=== PATIENT | female | born 1990 | race Caucasian/White ===

== ENCOUNTER 2016-04-19 18:52 | Emergency (ER) | payer OTHER ==
[~2016-04-19] VITALS: Ht 165.1 cm; Wt 100.7 kg
[~2016-04-19 18:52] MED LIST: AMT25T PO; AZIT250T81 PO; BENZ-22 PO; BUTA1CAP42 PO; BUTA1TAB6 PO; CLON0.252 PO; CODE30TA PO; CYCL10TA45 PO; DICL75TA2 PO; DICY10CA12 PO; ESCI20TA39; GBPN100C PO; HYDR-3702 PO; METF-759 PO; METH4TAB27 PO; NAPR550T PO; NF-TORA10 PO; NITR100C3 PO; NORE-25 PO; NORE1TAB61 PO; ONDA4TAB8 PO; ONDAN4ODT PO; PRCD5U PO; PROP80CA39 PO; SERT50TA PO; SULF1TAB35 PO; TOPI-53 PO; TRAZ100T92 PO; TRM50T PO
[2016-04-19] MEDS ORDERED: TRAZ-28 PO (19:20)
[2016-04-19] MEDS ORDERED: MIRT15TA PO (19:20)
[2016-04-19] MEDS ORDERED: ORPH100T3 PO (19:20)
[2016-04-19] MEDS ORDERED: PRD20T PO (19:20)
[2016-04-19] MEDS ORDERED: HYDR-33 PO (19:20)
[2016-04-19] MEDS ORDERED: SODIUM CHLORIDE FLUSH 10 ML SYR IV PRN (19:40)
[2016-04-19] MEDS ORDERED: ONDANSETRON 2 MG/ML (Z0FRAN) 2 ML VIAL IV ONE (19:40)
[2016-04-19] MEDS ORDERED: HYDROmorphone 1 MG/ML (DILAUDID) SYRINGE IV ONE (19:40)
[2016-04-19] MEDS ORDERED: SODIUM CHLORIDE FLUSH 3 ML SYR IV PRN (19:40)
[2016-04-19 20:16] LABS: ANION GAP 14.1 MEQ/L (3-15)
[2016-04-19] MEDS ORDERED: morphine INJ 2 MG/ML 1 ML SYRINGE IV PRN (21:05)
[2016-04-19] MEDS ORDERED: ORPHENADRINE 60 MG/2 ML (NORFLEX) AMP IV ONE ×2 (21:05→22:05)
[2016-04-19] MEDS ORDERED: morphine INJ 4 MG/ML 1 ML SYRINGE IV ONE (22:05)
[2016-04-19] MEDS ORDERED: ED- oxyCODONE/ACETAMINOPHEN 5MG-325MG (PERCOCET) 8 TABLETS/BTL PO ONE (22:05)
[2016-04-19] MEDS ORDERED: ED- CYCLOBENZAPRINE 10 MG (FLEXERIL) 3 TABLETS/BTL PO ONE (22:05)
[2016-04-19] MEDS ORDERED: OXYC1TAB87 PO (22:10)
[2016-04-19] MEDS ORDERED: CYCL10TA45 PO (22:10)
[2016-04-19 22:37] VITALS: BP 118/84
[2016-05-25] MEDS ORDERED: DIPH1TAB45 PO (17:24)
[2016-07-10] MEDS ORDERED: AZIT250T5 PO (19:01)
[2016-07-10] MEDS ORDERED: NEBU1KIT3 MC (19:01)
[2016-07-10] MEDS ORDERED: ALBU2.5V4 INH (19:01)
[2016-07-10] MEDS ORDERED: ALBU8CC IH (19:13)
== END 2016-04-19 22:38 | disposition home or self-care (01) ==
LOC: ED 18:53
DX: M54.5 Low back pain (principal)
CPT/HCPCS: 36415; 80048; 96361; 96374; 96375; 96376; 99283; J1170; J2270; J2360; J2405; J7030

== ENCOUNTER 2016-04-21 23:45 | Emergency (ER) | payer OTHER ==
[~2016-04-21] VITALS: Ht 165.1 cm; Wt 100.7 kg
[~2016-04-21 23:45] MED LIST changes: +HYDR-33 PO; +MIRT15TA PO; +ORPH100T3 PO; +OXYC1TAB87 PO; +PRD20T PO; +TRAZ-28 PO
--- NOTE | 2016-04-22 00:12 | NUR ---
Faxed authization for release of medical records to [facility] after speaking to Paz, change house attendant. She states that she will fax back the reports.
[2016-04-22] MEDS ORDERED: PROMETHAZINE 25 MG/ML (PHENERGAN) 1 ML VIAL IM ONE (00:20)
[2016-04-22] MEDS ORDERED: morphine INJ 10 MG/ML 1 ML VIAL IM SCH (00:20)
[2016-04-22] MEDS ORDERED: ORPHENADRINE 60 MG/2 ML (NORFLEX) AMP IM ONE (00:20)
[2016-04-22] MEDS ORDERED: OXYC1TAB87 PO (00:34)
[2016-04-22 00:52] VITALS: BP 113/75
[2016-05-25] MEDS ORDERED: DIPH1TAB45 PO (17:24)
[2016-07-10] MEDS ORDERED: AZIT250T5 PO (19:01)
[2016-07-10] MEDS ORDERED: NEBU1KIT3 MC (19:01)
[2016-07-10] MEDS ORDERED: ALBU2.5V4 INH (19:01)
[2016-07-10] MEDS ORDERED: ALBU8CC IH (19:13)
== END 2016-04-22 00:48 | disposition home or self-care (01) ==
LOC: ED 23:47
DX: M54.5 Low back pain (principal)
CPT/HCPCS: 96372; 99282; J2270; J2360; J2550; 99283

== ENCOUNTER 2016-04-23 13:04 | Emergency (ER) | payer OTHER ==
[~2016-04-23] VITALS: Ht 165.1 cm; Wt 97.0 kg
[2016-04-23] MEDS ORDERED: ONDANSETRON 2 MG/ML (Z0FRAN) 2 ML VIAL IV ONE (14:05)
[2016-04-23] MEDS ORDERED: HYDROmorphone 1 MG/ML (DILAUDID) SYRINGE IV ONE (14:05)
--- NOTE | 2016-04-23 14:59 | NUR ---
MRI APPOINTMENT SCHEDULED FOR 04/25/16 AT 1000 A.M. PATIENT NOTIFIED OF MRI.
--- NOTE | 2016-04-23 15:02 | NUR ---
PATIENT IS INSISTING ON WANTING MORPHINE NOW AFTER 2 MG OF DILAUDID. DENIES ANY MORE MEDICATION. PATIENT NOTIFIED.
--- NOTE | 2016-04-23 15:03 | NUR ---
Patient requested to see electronics commodity manager, this nurse electronics commodity manager arrives in patient room and talked with patient. Patient states she would like Morphine for her pain and a muscle relaxer medication. This nurse discussed with Dr. Kerr the request for additional medications. Patient was given, this ER visit, 2 mg of Dilaudid for pain and Zofran and declining additional medication. Patient requested "enough Percocet to get her to her appointment with Dr. Kenney on May 01, 2016" with patient requesting approximately #[address] Kerr declined script request. MRI appointment was set up and encouraged patient to keep MRI appointment on April 25, 2016, at 1000. Patient was given an appointment reminder card. Patient mother here to drive patient home. JEROME
[2016-04-23 16:05] VITALS: BP 153/96
[2016-05-25] MEDS ORDERED: DIPH1TAB45 PO (17:24)
[2016-07-10] MEDS ORDERED: NEBU1KIT3 MC (19:01)
[2016-07-10] MEDS ORDERED: ALBU2.5V4 INH (19:01)
[2016-07-10] MEDS ORDERED: AZIT250T5 PO (19:01)
[2016-07-10] MEDS ORDERED: ALBU8CC IH (19:13)
== END 2016-04-23 15:13 | disposition home or self-care (01) ==
LOC: ED 13:06
DX: M54.5 Low back pain (principal)
CPT/HCPCS: 96374; 96375; 99283; J1170; J2405; 99282

== ENCOUNTER 2016-04-25 10:51 | Emergency (ER) | payer OTHER ==
[~2016-04-25] VITALS: Ht 165.1 cm; Wt 98.2 kg
[2016-04-25] MEDS ORDERED: METH-315 PO (12:01)
[2016-04-25] MEDS ORDERED: LORazepam 2 MG/ML (ATIVAN) 1 ML VIAL IM ONE (12:05)
[2016-04-25 12:06] VITALS: BP 121/82
[2016-05-25] MEDS ORDERED: DIPH1TAB45 PO (17:24)
[2016-07-10] MEDS ORDERED: ALBU2.5V4 INH (19:01)
[2016-07-10] MEDS ORDERED: NEBU1KIT3 MC (19:01)
[2016-07-10] MEDS ORDERED: AZIT250T5 PO (19:01)
[2016-07-10] MEDS ORDERED: ALBU8CC IH (19:13)
== END 2016-04-25 12:12 | disposition home or self-care (01) ==
LOC: ED 10:52
DX: M54.89 Other dorsalgia (principal); Z76.5 Malingerer [conscious simulation]; F41.1 Generalized anxiety disorder; E28.2 Polycystic ovarian syndrome; F43.10 Post-traumatic stress disorder, unspecified
CPT/HCPCS: 96372; 99282; J2060; 99283

== ENCOUNTER 2016-04-29 21:59 | Emergency (ER) | payer OTHER ==
[~2016-04-29] VITALS: Ht 165.1 cm; Wt 54.0 kg
[~2016-04-29 21:59] MED LIST changes: +METH-315 PO
--- OUTSIDE RECORDS SUMMARY | 2016-04-29 22:04 | XMS REPORT | Summary of Care ---
Author Author Felipe Kenney M.D. Organization Unknown Address Unknown Phone Unavailable Care Team Providers Care Sand Caster Apprentice Name Role Phone Felipe Kenney M.D. Unavailable Unavailable Felipe Kenney Unavailable Unavailable Unavailable Unavailable Functional Status Name Dates Details Functional status health issues are not documented Status: Name Dates Details Cognitive status health issues are not documented Status: Problems Name Dates Details Headache (784.0, R51) Status: Active Chest tightness or pressure (786.59, R07.89) Status: Active Nausea (787.02, R11.0) Status: Active Constipation (564.00, K59.00) Status: Active HPV (human papilloma virus) infection (079.4, A63.0) Status: Active Anxiety (300.00, F41.9) Status: Active Depression (311, F32.9) Status: Active Insomnia (780.52, G47.00) Status: Active Migraines (346.90, G43.909) Status: Active Back pain (724.5, M54.9) Status: Active Knee pain (719.46, M25.569) Status: Active PCOS (polycystic ovarian syndrome) (256.4, E28.2) Status: Active Medications Name Dates Details Escitalopram Oxalate 20 MG Oral Tablet TAKE 1 TABLET DAILY. Refills: 0 Pablito M.D., Felipe Start 29-Apr-2016 Active TraZODone HCl - 50 MG Oral Tablet take 1 bid Refills: 0 [place] M.D., Feilpe Start 29-Apr-2016 Active HydrOXYzine HCl - 25 MG Oral Tablet TAKE 1 TABLET AT BEDTIME NEEDED. Refills: 0 [place] M.D., Felipe Start 29-Apr-2016 Active LORazepam 1 MG Oral Tablet take 1-2 prn Refills: 0 Pablito M.D., Felipe Start 29-Apr-2016 Active Methocarbamol 750 MG Oral Tablet TAKE 1 TABLET 3 TIMES DAILY. Refills: 0 [place] M.D., Felipe Start 29-Apr-2016 Active Jbeoedmkbc-OYAQ-Wvixrqbj 50-325-40 MG Oral Tablet Take 1 q 4 hrs PRN Refills: 0 Pablito M.D., Felipe Start 29-Apr-2016 Active MetFORMIN HCl - 500 MG Oral Tablet TAKE 2 TABLETS TWICE DAILY Quantity: 120 Refills: 3 Pablito M.D., Felipe Start 29-Apr-2016 Active Mirtazapine 15 MG Oral Tablet TAKE 1 TABLET AT BEDTIME. Refills: 0 [place] M.D., Eflipe Start 29-Apr-2016 Active Cyclobenzaprine HCl - 10 MG Oral Tablet TAKE 1 TID PRN Refills: 0 Pablito M.D., Felipe Start 29-Apr-2016 Active Meloxicam 7.5 MG Oral Tablet TAKE 1 TABLET DAILY WITH FOOD. Quantity: 30 Refills: 6 [place] M.D., Felipe Start 29-Apr-2016 Active TraMADol HCl ER 100 MG Oral Tablet Extended Release 24 Hour TAKE 1 TABLET DAILY. Quantity: 30 Refills: 5 Pablito M.D., Felipe Start 29-Apr-2016 Active Oxycodone-Acetaminophen 5-325 MG Oral Tablet 1 po bid prn Quantity: 20 Refills: 0 [place] M.D., Felipe Start 29-Apr-2016 Active Allergies and Adverse Reactions Name Dates Details Rocephin (Allergy) Status: Active Toradol (Allergy) Status: Active Past Medical History Name Dates Details History of allergy (V15.09, Z88.9) Status: Resolved History of asthma (V12.69, Z87.09) Status: Resolved History of recurrent urinary tract infection (V13.02, Z87.440) Status: Resolved Procedures Procedure Dates Details History of Tonsillectomy CBC w/ Auto Diff 7150 Ordered: 29-Apr-2016 Comprehensive Metabolic Panel 1212 Ordered: 29-Apr-2016 LIPID PROFILE 1184 Ordered: 29-Apr-2016 Immunization Name Dates Details Immunizations not documented Family History Name Dates Details Family history of systemic lupus erythematosus (V19.4, Z82.69) Status: Active Family history of fibromyalgia (V17.89, Z82.69) Status: Active Family history of osteoporosis (V17.81, Z82.62) Status: Active Name Dates Details Family history of arthritis (V17.7, Z82.61) Status: Active Family history of cardiac disorder (V17.49, Z82.49) Status: Active Social History Name Dates Details Unknown if ever smoked Vital Signs Date Test Result Details 29-Apr-2016 08:05 BP Systolic 116 mm[Hg] Status: Comments: Location: LUE; Position: Sitting BP Diastolic 80 mm[Hg] Status: Comments: Location: LUE; Position: Sitting Temperature 97.7 f Status: Comments: Method: Tympanic Heart Rate 98 /min Status: Comments: Location: ; Height 65 in Status: Weight 215 lb Status: Physical Findings 98 Status: Comments: O2 Saturation Body Mass Index Calculated 35.78 kg/m2 Status: Body Surface Area Calculated 2.04 m2 Status: Results Date Description Value Details Results not documented Plan of Care Name Dates Details Planned Observations CBC w/ Auto Diff 7150 On 13-May-2016 Intent Comprehensive Metabolic Panel 1212 On 13-May-2016 Intent LIPID PROFILE 1184 On 13-May-2016 Intent Planned Goals not documented Planned Encounters Appointment; Provider: Felipe Kenney M.D. On 14-May-2016 11:00 Interventions Provided Medication ChangesMeloxicam 7.5 MG Oral Tablet - StartOxycodone-Acetaminophen 5- 325 MG Oral Tablet - StartTraMADol HCl ER 100 MG Oral Tablet Extended Release 24 Hour - Start Instructions Name Dates Details Instructions not documented Encounters Appointment; Felipe Kenney M.D. Encounter Diagnosis: Problem not documented On 15-Feb-2016 15:00
[2016-04-29] MEDS ORDERED: HYDROmorphone 2 MG/ML (DILAUDID) 1 ML SYRINGE IM ONE (22:05)
[2016-04-29] MEDS ORDERED: PROMETHAZINE 25 MG/ML (PHENERGAN) 1 ML VIAL IM ONE (22:05)
[2016-04-29] MEDS ORDERED: LORazepam 2 MG/ML (ATIVAN) 1 ML VIAL IM ONE (22:05)
[2016-04-29] MEDS ORDERED: TRM50T PO (22:31)
[2016-04-29] MEDS ORDERED: ED- ONDANSETRON ODT 4 MG (ZOFRAN) 4 TABLETS/BTL PO ONE (22:55)
--- NOTE | 2016-04-29 23:01 | NUR ---
PT WISHES TO SPEAK WITH INSURANCE CLAIMS EXAMINER, NOTIFIED NEHAL AND Kemi STALEY WILL BE DOWN.
--- NOTE | 2016-04-29 23:37 | NUR ---
Kemi CALVERTSHORT PIECE HANDLER DOWN TO SPEAK WITH PT
[2016-04-29 23:38] VITALS: BP 129/85
--- NOTE | 2016-04-29 23:50 | NUR ---
PHENERGAN, ATIVAN AND DILAUDID WERE GIVEN IM SO NO START STOP TIMES FOR IV
[2016-05-25] MEDS ORDERED: DIPH1TAB45 PO (17:24)
[2016-07-10] MEDS ORDERED: NEBU1KIT3 MC (19:01)
[2016-07-10] MEDS ORDERED: ALBU2.5V4 INH (19:01)
[2016-07-10] MEDS ORDERED: AZIT250T5 PO (19:01)
[2016-07-10] MEDS ORDERED: ALBU8CC IH (19:13)
== END 2016-04-29 23:55 | disposition home or self-care (01) ==
LOC: ED 22:02
DX: G43.909 Migraine, unspecified, not intractable, without status migrainosus (principal); R11.2 Nausea with vomiting, unspecified; R19.7 Diarrhea, unspecified
CPT/HCPCS: 96372; 99283; J1170; J2060; J2550; 99282

== ENCOUNTER → 2016-05-25 | Emergency (ER) | payer OTHER ==
[~2016-05-25] VITALS: Ht 165.1 cm; Wt 99.2 kg
[~2016-05-25] MED LIST changes: -AMT25T PO; -AZIT250T81 PO; -BENZ-22 PO; -BUTA1CAP42 PO; -BUTA1TAB6 PO; -CLON0.252 PO; -CODE30TA PO; -CYCL10TA45 PO; -DICL75TA2 PO; -DICY10CA12 PO; -ESCI20TA39; -GBPN100C PO; -HYDR-33 PO; -HYDR-3702 PO; +LORazepam 2 MG/ML (ATIVAN) 1 ML VIAL IV ONE; -METF-759 PO; -METH-315 PO; -METH4TAB27 PO; -MIRT15TA PO; -NAPR550T PO; -NF-TORA10 PO; -NITR100C3 PO; -NORE-25 PO; -NORE1TAB61 PO; -ONDA4TAB8 PO; -ONDAN4ODT PO; +ONDANSETRON 2 MG/ML (Z0FRAN) 2 ML VIAL IV ONE; -ORPH100T3 PO; -OXYC1TAB87 PO; -PRCD5U PO; -PRD20T PO; -PROP80CA39 PO; -SERT50TA PO; +SODIUM CHLORIDE FLUSH 10 ML SYR IV PRN; +SODIUM CHLORIDE FLUSH 3 ML SYR IV ONE; -SULF1TAB35 PO; -TOPI-53 PO; -TRAZ-28 PO; -TRAZ100T92 PO; -TRM50T PO
[2016-05-25 15:55] VITALS: BP 113/74
[2016-05-25 16:16] LABS: BASOPHILS % (AUTO) 0 % (0-2); EOSINOPHILS # (AUTO) 0.1 10^3uL; EOSINOPHILS % (AUTO) 1 % (0-4); LYMPHOCYTES # (AUTO) 3.2 X10^3; MEAN CORPUSCULAR VOLUME 90 FL (80-100); MEAN PLATELET VOLUME 10.3 FL (6.0-9.5); MONOCYTES # (AUTO) 0.6 X10^3; MONOCYTES % (AUTO) 8 % (3-11); NEUTROPHILS # (AUTO) 3.5 X10^3; NEUTROPHILS % (AUTO) 48 % (51-67); PLATELET COUNT 283 10^3uL (150-450); WHITE BLOOD COUNT 7.42 10^3uL (4.0-11.0)
[2016-05-25 16:21] LABS: MEAN CORPUSCULAR HEMOGLOBIN 32.3 PG (26.0-34.0); MEAN CORPUSCULAR HGB CONC 35.7 g/dL (31.0-37.0)
[2016-05-25 16:28] LABS: ANION GAP 17.4 MEQ/L (3-15); MAGNESIUM* 1.8 mg/dL (1.6-2.3); TOTAL PROTEIN 7.3 g/dL (6.4-8.5)
[2016-05-25 16:29] LABS: BILIRUBIN,URINE Negative (Negative); COLOR,URINE Yellow; GLUCOSE, URINE (UA) Negative (Negative); LEUKOCYTE ESTERASE ,URINE Negative (Negative); UROBILINOGEN,URINE 0.2 mg/dL (0.2-1.0)
[2016-05-25 16:43] LABS: AMPHETAMINE SCREEN, URINE Negative (Negative); CANNABINOID SCREEN, URINE Negative (Negative); METHAMPHETAMINE SCREEN URINE S NEGATIVE (NEGATIVE); OPIATE SCREEN URINE Negative (Negative); PROPOXYPHENE STAT NEGATIVE (NEGATIVE)
[2016-05-25 16:44] LABS: CLARITY,URINE Slightly Cloudy
[2016-05-25 16:50] LABS: RBC,URINE 0-2 /HPF; URINE CENTRIFUGED VOLUME 12 mL
[2016-05-25 19:36] LABS: ERYTHROCYTE SEDIMENTATION RT* 18 mm/hr (0-21)
== END | disposition home or self-care (01) ==
LOC: ED 15:14
DX: R19.7 Diarrhea, unspecified (principal); R11.0 Nausea; R63.4 Abnormal weight loss
CPT/HCPCS: 36415; 80053; 80307; 80320; 80329; 81003; 81015; 82150; 82550; 83690; 83735; 84134; 84443; 84703; 85025; 85652; 86140; 96361; 96374; 96375; 99284; J2060; J2405; J7030; 99283

== ENCOUNTER → 2016-07-10 | Outpatient (CLI) | payer OTHER ==
[~2016-07-10] MED LIST changes: +ALBU2.5V4 INH; +ALBU8CC IH; +AMT25T PO; +AZIT250T5 PO; +AZIT250T81 PO; +BENZ-22 PO; +BUTA1CAP42 PO; +BUTA1TAB6 PO; +CLON0.252 PO; +CODE30TA PO; +CYCL10TA45 PO; +DICL75TA2 PO; +DICY10CA12 PO; +DICY20TA10 PO; +DIPH1TAB45 PO; +ESCI20TA39 PO; +GBPN100C PO; +HYDR-33 PO; +HYDR-3702 PO; +LORA1TAB PO; -LORazepam 2 MG/ML (ATIVAN) 1 ML VIAL IV ONE; +METF-759 PO; +METF500T4 PO; +METH-315 PO; +METH4TAB27 PO; +MIRT15TA PO; +NAPR550T PO; +NEBU1KIT3 MC; +NF-TORA10 PO; +NITR100C3 PO; +NORE-132 PO; +NORE-25 PO; +NORE1TAB61 PO; +ONDA4TAB8 PO; +ONDAN4ODT PO; -ONDANSETRON 2 MG/ML (Z0FRAN) 2 ML VIAL IV ONE; +ORPH100T3 PO; +OXYC1TAB7 PO; +OXYC1TAB87 PO; +PENT100C3 PO; +PRCD5U PO; +PRD20T PO; +PROM25SU10 PR; +PROP80CA39 PO; +SERT50TA PO; -SODIUM CHLORIDE FLUSH 10 ML SYR IV PRN; -SODIUM CHLORIDE FLUSH 3 ML SYR IV ONE; +SULF1TAB35 PO; +TOPI-53 PO; +TRAM100T26 PO; +TRAZ-28 PO; +TRAZ100T92 PO; +TRM50T PO; +[UNRECOGNIZED DRUG - CODE] PO
[2016-07-10 19:30] VITALS: BP 101/75
--- NOTE | 2016-07-10 19:30 | Urgent Care T Sheet Gen (E) ---
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 The cleaning agents are starting to really bother her, and she told her company so she can start using some masks for the future, but she is hoping to get a breathing treatment if possible because she is so short of breath tonight. She has been using the fluticasone inhaler she had, but this isn't providing much in the way of relief. She doesn't currently have an albuterol inhaler. She is still coughing up phlegm, has a sore throat from the cough, and some sinus congestion and rhinorrhea still, though most of the URI symptoms are better. The peak of this infection was about 2 weeks ago, but it still hasn't quite resolved and she was wondering if she might need antibiotics also. Onset & Duration: Unsure, Weeks (2) Timing: Still present Similar Sympotms Previously: Yes Allergies: Coded Allergies: adhesive (Verified Allergy, Unknown, SKIN REDNESS, BLISTERS, 04/29/16) ceftriaxone (Verified Allergy, Unknown, 04/29/16) ketorolac (Verified Allergy, Unknown, 04/29/16) latex (Verified Allergy, Unknown, SKIN REDNESS, BLISTERS, 04/29/16) Home Meds Active Scripts Diphenoxylate HCl/Atropine (Lomotil)1 Ea Tablet1 Ea PO Q6H PRN DIARRHEA #10 TAB Ref 0 Prov:CHARLEEN MARSH DO 05/25/16 Methocarbamol (Robaxin-750)750 Mg [id number] Mg PO TID #15 TAB Prov:CHANTAL GAYTAN MD 04/25/16 Oxycodone HCl/Acetaminophen (Percocet 5mg/325mg)1 Tab Tablet1-2 Tab PO Q4H PRN PAIN #10 TAB Ref 0 Prov:ZAKIA RAMOS MD 04/22/16 Cyclobenzaprine HCl (Flexeril)10 Mg Lcockc85 Mg PO TID PRN PAIN #30 TAB Ref 0 Prov:ZAKIA RAMOS MD 04/19/16 Oxycodone HCl/Acetaminophen (Percocet 5mg/325mg)1 Tab Tablet1 Tab PO Q4H PRN PAIN #15 TAB Ref 0 Prov:ZAKIA RAMOS MD 04/19/16 Reported Medications Tramadol HCl 50 Mg Tablet1-2 Tab PO Q6H PRN PAIN #20 TAB Ref 0 04/29/16 Mirtazapine (Remeron)15 Mg Tablet1 Tab PO DAILY #30 04/19/16 Trazodone HCl (Desyrel)50 Mg Tab2 Tab PO HS #60 04/19/16 Prednisone (Deltasone)20 Mg Tab1 Tab PO DAILY #21 04/19/16 Orphenadrine Citrate (Norflex)100 Mg Tablet.er1 Tab PO BID #14 04/19/16 Escitalopram Oxalate 20 Mg Tablet1 Tab DAILY #25 10/16/15 Metformin HCl (Metformin HCl ER)500 Mg [id number] Mg PO BID 07/23/15 Clonazepam 0.25 Mg Tab.rapdis0.5 Mg PO TID 03/14/15 Respiratory Constitutional Symptoms: See HPINo Chills, No Fever, No Malaise EENTM: See HPINo Ear pain, No Nose Pain, Nose Congestion Throat pain (with coughing) Respiratory: See HPI Cough Short of breath Wheezing Cardiovascular: No symptoms reported Gastrointestinal/Abdominal: No symptoms reported Genitourinary: No symptoms reported Musculoskeletal: No symptoms reported Skin: No symptoms reported Neurological: No symptoms reported Immunologic/Allergies: No symptoms reported All Other Systems Reviewed Remaining Systems: All other systems reviewed with negative findings Past Qmqqknq-Runzbd-Xllvcx Hx Patient's Social History Alcohol Use: Denies Use Smoking Status: Never smoker Recent foreign travel: No Surgeries/Hospitalizations Hospitalization/Surgery Hx: T&A, viral encephalitis 2014 Respiratory Respiratory History: Asthma Cardiovascular Cardiovascular History: Other, see comment Comment: HX WEARING HEART MONITOR/COSTROCHONDRITIS Neuro/Muscular Comment: HX COSTROCHONDRITIS, R JAW PAIN CHRONIC Reproductive System Sexually Transmitted Diseases: Yes (HPV) Gastrointestinal GI/Endocrine History: Abdominal pain, Nausea, Vomiting Diabetes Diabetes: No HEENT Impaired Vision: None Hearing Impaired: None Psychosocial Behavior Disorders: Other, See Comment Physical Exam Physical Exam General Appearance: WD/WN No apparent distress Obese (mildly) Eyes, Ears, Nose, Throat Ex: PERRL/EOMI Pharyngeal erythema (with clear fluid present)No Tonsillar exudate, Other (TMs bulging bilaterally with clear fluid present; no sinus pain on palpation of maxillary/frontal sinuses; mild erythema and swelling of nasal turbinates with clear fluid present) Neck Exam: Non tender Full range of motion Supple Normal inspection Normal thyroidNo Lymphadenopathy Respiratory Exam: Chest non-tender Decreased breath sounds (in the bases bilaterally) Rhonchi (in the upper lobes bilaterally, with rough breath sounds throughout) Cardiovascular Exam: Regular rate, rhythm No murmur Skin Exam: Normal color Warm/dry/intact No rashes Neurologic/Psychiatric Exam: Oriented times 4 Mood/affect nml Lymphatic Exam: No adenopathy Medications Administered Medications Adminstered: Albuterol 0.083% (given via nebulizer; pt tolerated well and had improved ease of breathing afterwards) Departure Urgent Care Impression Chief Complaint: asthma, coughing up phlegm, can't take deep breaths Impression: Primary Impression: Asthma exacerbation, mild Additional Impression: Bronchitis Departure Disposition: 01 HOME OR SELF-CARE Condition: Stable Referrals: DASHAWN BABB MD (PCP) Additional Instructions: Discussed with pt that apart from the asthma, I do think she may have a lower respiratory infection, so we will go ahead and treat this with antibiotics. She can continue to use the steroid inhaler daily but discussed the difference between medications and appropriate use of each. I think an albuterol inhaler is what she has needed short-term, so I will prescribe this, as well as the nebulizer so she can do these treatments at home when her asthma worsens acutely like this. She should follow up if not improving with the antibiotics, or if worsening with fever, chills, rash, increasing pain, increasing shortness of breath or other concerning symptoms. Pt states understanding and agrees to plan. All questions answered. Scripts Albuterol Sulfate (Ventolin HFA)90 Mcg/1 Puff Hfa.aer.ad2 Puff IH every 4 hours PRN SHORTNESS OF BREATH #1 INHALER Ref 1 Prov:HEATHER MERCER 07/10/16 Nebulizer (Compact Compressor Nebulizer)1 Each Kit #1 Each Mc Prov:HEATHER MERCER 07/10/16 Albuterol Sulfate 2.5 Mg/3 Ml Vial.neb1 Vial INH QID PRN SHORTNESS OF BREATH # 30 VIAL Ref 1 Prov:HEATHER MERCER 07/10/16 Azithromycin 250 Mg Tablet1 Tab PO DAILY Infection #6 TAB Ref 0 Take 2 tabs by mouth today, then 1 tab by mouth daily days 2-5 Prov:HEATHER MERCER 07/10/16 End of report . HEATHER MERCER Jul 10, 2016 19:30
== END ==
LOC: MHUC 18:27
PROVIDERS: ATTEND Physician Assistant Medical
DX: J45.21 Mild intermittent asthma with (acute) exacerbation (principal); J40 Bronchitis, not specified as acute or chronic
CPT/HCPCS: 94640; 99213

== ENCOUNTER 2016-07-13 13:13 | Emergency (ER) | payer OTHER ==
[~2016-07-13] VITALS: Ht 165.1 cm; Wt 97.8 kg
[~2016-07-13 13:13] MED LIST changes: -DICY20TA10 PO; -LORA1TAB PO; -METF500T4 PO; -NORE-132 PO; -OXYC1TAB7 PO; -PENT100C3 PO; -PROM25SU10 PR; -TRAM100T26 PO; -[UNRECOGNIZED DRUG - CODE] PO
[2016-07-13] MEDS ORDERED: HYDROmorphone 2 MG/ML (DILAUDID) 1 ML SYRINGE IM ONE (14:05)
[2016-07-13] MEDS ORDERED: PROMETHAZINE 25 MG/ML (PHENERGAN) 1 ML VIAL IM ONE (14:05)
[2016-07-13] MEDS ORDERED: ONDA4TAB8 PO (14:08)
[2016-07-13] MEDS ORDERED: DIPH1TAB45 PO (14:08)
[2016-07-13 14:22] VITALS: BP 132/84
== END 2016-07-13 14:22 | disposition home or self-care (01) ==
LOC: ED 13:13
DX: A08.39 Other viral enteritis (principal)
CPT/HCPCS: 96372; 99283; J1170; J2550

== ENCOUNTER 2016-07-16 20:14 | Emergency (ER) | payer OTHER ==
[~2016-07-16] VITALS: Ht 165.1 cm; Wt 97.7 kg
[2016-07-16] MEDS ORDERED: SODIUM CHLORIDE FLUSH 10 ML SYR IV PRN (20:45)
[2016-07-16] MEDS ORDERED: PROMETHAZINE HCL INJ 25 MG in SODIUM CHLORIDE 25 ML IV ONE (20:45)
[2016-07-16 21:23] LABS: BASOPHILS % (AUTO) 0 % (0-2); EOSINOPHILS # (AUTO) 0.1 10^3uL; EOSINOPHILS % (AUTO) 0 % (0-4); LYMPHOCYTES # (AUTO) 2.2 X10^3; MEAN CORPUSCULAR HEMOGLOBIN 31.2 PG (26.0-34.0); MEAN CORPUSCULAR HGB CONC 34.3 g/dL (31.0-37.0); MEAN CORPUSCULAR VOLUME 91 FL (80-100); MEAN PLATELET VOLUME 11.3 FL (6.0-9.5); MONOCYTES # (AUTO) 0.4 X10^3; MONOCYTES % (AUTO) 3 % (3-11); NEUTROPHILS # (AUTO) 9.9 X10^3; NEUTROPHILS % (AUTO) 79 % (51-67); PLATELET COUNT 253 10^3uL (150-450); WHITE BLOOD COUNT 12.63 10^3uL (4.0-11.0)
[2016-07-16 21:38] LABS: ALBUMIN 4.6 g/dL (3.4-5.0); ANION GAP 18.8 MEQ/L (3-15)
[2016-07-16] MEDS ORDERED: HYDROmorphone 1 MG/ML (DILAUDID) SYRINGE IV ONE (21:40)
[2016-07-16 21:51] LABS: BILIRUBIN,URINE Negative (Negative); CLARITY,URINE Clear; COLOR,URINE Yellow; GLUCOSE, URINE (UA) Negative (Negative); LEUKOCYTE ESTERASE ,URINE Negative (Negative); UROBILINOGEN,URINE 0.2 mg/dL (0.2-1.0)
[2016-07-16] MEDS ORDERED: METOCLOPRAMIDE 10 MG/2 ML (REGLAN) VIAL IV ONE (21:55)
[2016-07-16 22:10] LABS: URINE CENTRIFUGED VOLUME 12 mL
[2016-07-16 22:13] LABS: RBC,URINE 0-2 /HPF
[2016-07-16] MEDS ORDERED: DICYCLOMINE 10 MG (BENTYL) CAP PO ONE (22:35)
[2016-07-16] MEDS ORDERED: DIPHENOXYLATE/ATROPINE 2.5MG/0.025MG (LOMOTIL) TAB PO ONE (22:35)
[2016-07-16] MEDS: SODIUM CHLORIDE FLUSH 3 ML SYR IV PRN ×2 (22:38→23:08)
[2016-07-16] MEDS ORDERED: ED- PROMETHAZINE 25 MG (PHENERGAN) 10 TABLETS/BTL PO ONE (22:55)
[2016-07-16] MEDS ORDERED: [UNRECOGNIZED DRUG - OTHER] PO ONE (22:55)
[2016-07-16] MEDS ORDERED: PROM25SU10 PR (22:56)
[2016-07-16] MEDS ORDERED: DICY20TA10 PO (22:56)
[2016-07-16] MEDS ORDERED: morphine INJ 4 MG/ML 1 ML SYRINGE IV ONE (23:05)
[2016-07-16] MEDS ORDERED: diphenhydrAMINE 50 MG/ML INJ (BENADRYL) IV ONE (23:10)
--- NOTE | 2016-07-16 23:28 | NUR ---
Admit Benadryl IV slowly over 2 min. Started pushing Morphine IV and patient started vomitting. Had barely started pushing morphine when patient started vomitting, she stated right before starting the morphine, "I feel nauseous. " Vomitted approx. 150 cc.
[2016-07-17 00:42] VITALS: BP 128/82
[2016-07-17] MEDS ORDERED: TRAZ100T92 PO (15:36)
[2016-07-17] MEDS ORDERED: OXYC1TAB7 PO (16:03)
[2016-07-17] MEDS ORDERED: PENT100C3 PO (16:03)
[2016-07-17] MEDS ORDERED: NORE-132 PO (16:03)
[2016-07-17] MEDS ORDERED: METF500T4 PO (16:03)
[2016-07-17] MEDS ORDERED: [UNRECOGNIZED DRUG - CODE] PO (16:03)
[2016-07-17] MEDS ORDERED: TRAM100T26 PO (16:03)
[2016-07-17] MEDS ORDERED: LORA1TAB PO (16:20)
== END 2016-07-17 00:10 | disposition home or self-care (01) ==
LOC: ED 20:15
DX: K52.9 Noninfective gastroenteritis and colitis, unspecified (principal); R10.11 Right upper quadrant pain; R10.31 Right lower quadrant pain
CPT/HCPCS: 36415; 80053; 81003; 81015; 83690; 84703; 85025; 96361; 96365; 96375; 99284; J1170; J1200; J2270; J2550; J2765; J7030; 99283

== ENCOUNTER 2016-07-17 07:03 | Inpatient (IN) | payer OTHER ==
[~2016-07-17] VITALS: Ht 165.1 cm; Wt 96.5 kg
[~2016-07-17 07:03] MED LIST changes: +DICY20TA10 PO; +PROM25SU10 PR
[2016-07-17] MEDS ORDERED: PROMETHAZINE HCL INJ 25 MG in SODIUM CHLORIDE 25 ML IV ONE (07:20)
[2016-07-17 07:37] LABS: MEAN CORPUSCULAR HGB CONC 34.3 g/dL (31.0-37.0); MEAN CORPUSCULAR VOLUME 92 FL (80-100); MEAN PLATELET VOLUME 11.3 FL (6.0-9.5); PLATELET COUNT 224 10^3uL (150-450); WHITE BLOOD COUNT 9.73 10^3uL (4.0-11.0)
[2016-07-17 07:40] LABS: MEAN CORPUSCULAR HEMOGLOBIN 31.3 PG (26.0-34.0)
[2016-07-17 07:46] LABS: BAND NEUTROPHILS % 6 % (0-6); SEGMENTED NEUTROPHILS % 81 % (51-67)
[2016-07-17 07:47] LABS: EOSINOPHILS % 0 % (0-4); LYMPHOCYTES # 0.9 #; MONOCYTES # 0.4 #; MONOCYTES % 4 % (3-11); RBC MORPH NORMAL (NORMAL); TOTAL CELLS COUNTED 100
--- NOTE | 2016-07-17 07:57 | NUR ---
RADIOLOGY HERE FOR CT & PT DRY HEAVING SO WE WILL CALL THEM WHEN SHE IS ABLE TO GO TO CT. CL
[2016-07-17 08:00] LABS: BILIRUBIN,URINE Negative (Negative); CLARITY,URINE Clear; COLOR,URINE Yellow; GLUCOSE, URINE (UA) Negative (Negative); LEUKOCYTE ESTERASE ,URINE Negative (Negative); PH,URINE 5.5 (5.0 - 8.0); UROBILINOGEN,URINE 0.2 mg/dL (0.2-1.0)
[2016-07-17] MEDS ORDERED: LORazepam 2 MG/ML (ATIVAN) 1 ML VIAL IV ONE ×2 (08:00→08:05)
[2016-07-17 08:03] LABS: ALBUMIN 4.1 g/dL (3.4-5.0); ANION GAP 19.6 MEQ/L (3-15); CALCULATED IONIZED CALCIUM 3.8 mg/dL (3.8-4.6); TOTAL PROTEIN 7.6 g/dL (6.4-8.5)
[2016-07-17 08:21] LABS: URINE CENTRIFUGED VOLUME 10 mL
[2016-07-17] MEDS ORDERED: fentaNYL 100 MCG/2 ML VIAL IV ONE ×2 (08:30→09:50)
--- NOTE | 2016-07-17 09:10 | NUR ---
PT QUIET AT THIS TIME BUT SHOWS THIS RN THAT SHE VOMITED APPX 100 GREEN BILE. REPT TO DR VARGAS. PT NOT WRETCHING AT THIS TIME. CL
--- NOTE | 2016-07-17 09:12 | NUR ---
PT REPORTS SHE ONLY GOT A LITTLE RELIEF FROM HER PAIN MED & PAIN BACK TO 11/21. CL
--- NOTE | 2016-07-17 09:26 | Diagnostic Imaging Report ---
PROCEDURE: CT abdomen and pelvis without contrast. TECHNIQUE: Multiple contiguous axial images were obtained through the abdomen and pelvis without the use of intravenous contrast. INDICATION: Six days history of nausea, vomiting and pain. Exam compared 01/22/2016. Liver, gallbladder, bile ducts, spleen, adrenals and pancreas normal. There is no hydronephrosis. No opaque kidney stone. The appendix is nondilated. The right adnexal cyst presumed ovarian showing no appreciable complexity, probably a dominant follicle at 2.1 cm. Left adnexa, uterus and urinary bladder normal. There are no findings of bowel obstruction. No substantial bowel dilatation. There is fluid within the small and large bowel lumen throughout, which may reflect a hypermobile state. No bowel wall thickening. No perienteric or pericolonic edema. There are some shotty lymph nodes along the mesenteric root and right lower quadrant, nodes measured 1 cm and less, mild mesenteric adenitis could not be excluded. IMPRESSION: Shotty mild mesenteric adenopathy raising the question of adenitis. Fluid-filled small and large bowel loops without differential air-fluid levels, substantial dilatation or transition zone could be seen in nonspecific enterocolitis or hypermobile state. No significant bowel wall thickening or perienteric edema. No fluid collection, unobstructed urinary tracts, remaining structures normal. Dictated by: Dictated on workstation # [id number]
--- NOTE | 2016-07-17 09:38 | NUR ---
DR VARGAS TALKS W/HOSPITALIST RE POSS ADMISSION. CL
--- NOTE | 2016-07-17 09:48 | NUR ---
RN D/C PT ON FLOOR AT THIS TIME & WILL CALL ME BACK WHEN THAT IS COMPLETED FOR REPORT/PT ADMIT. CL
[2016-07-17] MEDS ORDERED: ONDANSETRON 2 MG/ML (Z0FRAN) 2 ML VIAL IV ONE (09:50)
[2016-07-17] MEDS: SODIUM CHLORIDE FLUSH 3 ML SYR IV PRN ×2 (10:02→11:36)
[2016-07-17] MEDS: SODIUM CHLORIDE FLUSH 10 ML SYR IV PRN ×2 (10:04→16:52)
--- NOTE | 2016-07-17 10:20 | NUR ---
Patient admitted to room 318 per cart from ER. Reports abdominal pain rated at 8/10 even after pain medication in ER.
[2016-07-17 10:43] VITALS: BP 133/81
[2016-07-17 10:45] VITALS: BP 133/81
[2016-07-17] MEDS ORDERED: ONDANSETRON 2 MG/ML (Z0FRAN) 2 ML VIAL IV PRN (11:20)
[2016-07-17] MEDS ORDERED: ACETAMINOPHEN 325 MG TAB (TYLENOL) PO PRN (11:20)
--- NOTE | 2016-07-17 11:20 | History and Physical (E) ---
History & Physical PCP: Dr Felipe Kenney CC: Nausea vomiting abdominal HPI: Marisa ( tip Lay-gigi) is a 26 year old female admitted through the ED today 07-17-16 for nausea and vomiting and diarrhea since last . She has been in the ED several times. She reports > 10 watery stools a day. Its been so bad that she put a diaper on- she has been incontinent of stool. Feels achey and chilling. No recent travel or antibiotics reported. She has been vomiting and hasn't eaten hardly at all since last . C/O abdominal pain and soreness. She feels weak and worn out from being up all night having stools and vomiting. Denies . Hasn't been around any ill people that she is aware of. No well water. Her is well. Clinically she is dehydrated and continues to have abdominal pain and stool incontinence of watery stool. She states she sees some red blood now when she wipes. No h/o and inflammatory bowel issues that she knows of. PMH: PCOS Bladder issues Asthma Depression Chronic Back Pain Migraine Headaches PSH: Egan teeth T&A Bladder surgery Dr Jesus Russell ALLERGIES: Please see list at end of report. HOME MEDICATIONS: Please see list at end of report. 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 Denies fever or chills. HEENT: No change in vision or hearing. No sores in mouth, sore throat. CV: No chest pain, palpitations. PULM: No cough, shortness of breath, difficulty breathing. GI: Endorses upset stomach, nausea, vomiting, No constipation, Having copious amounts of liquid diarrhea. Has seen red blood in stool. : No dysuria. No blood in urine. MS: No new muscle or joint aches and pains. NEURO: No numbness or tingling. No weakness. INTEG: No rashes, lesions, or sores. ENDO: No heat or cold intolerance. No polydipsia or polyuria. HEME/LYMPH: No easy bruising or bleeding. No swollen glands. PSYCH: No change in mood or behavior. OBJECTIVE: Vitals: Vital Signs Date Time Temp Pulse Resp B/P Pulse Ox O2 Delivery O2 Flow Rate FiO2 07/17/16 10:45 97.6 139 18 133/81 98 Room air GEN: Awake, alert, oriented, NAD HEENT: EOMI, PERRL, dry oral mucosa. CV: RRR S1 S2 normal with no murmur LUNGS: CTA B ABD: Soft, NT/ND with hypoactive bowel sounds.Tender EXTR: No C/C/E. Normal peripheral pulses. INTEG: No rash. Tattoo on chest and ankle NEURO: No focal motor neuro deficit. Weight: 96.5 kg LABS: CBC BMP Last 24 Hrs 07/17/16 07:25 Laboratory Results Past 24 Hrs 07/17/16 07:25: Absolute Band Neutrophils 0.5, Alanine Aminotransferase (ALT/SGPT) 50, Albumin 4.1, Albumin/Globulin Ratio 1.171, Alkaline Phosphatase 52, Anion Gap 19.6, Aspartate Amino Transf (AST/SGOT) 26, BUN/Creatinine Ratio 17, Band Neutrophils % 6, Basophils # (Auto) , Basophils # (Manual) 0.0, Basophils % (Manual) 0, Basophils (%) (Auto) , Blood Morphology Comment Normal, Blood Urea Nitrogen 15, C-Reactive Protein 4.20, Calcium Level 8.9, Calcium/Ionized Calcium Ratio 3.8, Calculated Osmolality 274, Carbon Dioxide Level 18, Chloride Level 107, Creatinine 0.89, Differential Total Cells Counted 100, Eosinophils # 0.0, Eosinophils # (Auto) , Eosinophils % (Manual) 0, Eosinophils (%) (Auto) , Estimat Glomerular Filtration Rate 94.3, Estimated GFR (Non- 77.9, Glucose Level 112, Hematocrit 39.70, Hemoglobin 13.6, Lipase 40, Lymphocytes # 0.9, Lymphocytes # (Auto) , Lymphocytes % (Manual) 9, Lymphocytes (%) (Auto) , Mean Corpuscular Hemoglobin 31.3, Mean Corpuscular Hemoglobin Concent 34.3, Mean Corpuscular Volume 92, Mean Platelet Volume 11.3, Monocytes # 0.4, Monocytes # (Auto) , Monocytes % (Manual) 4, Monocytes (%) (Auto) , Neutrophils # 7.9, Neutrophils # (Auto) , Neutrophils (%) (Auto) , Platelet Count 224, Potassium Level 3.8, Red Blood Count 4.34, Red Cell Distribution Width 12.4, Segmented Neutrophils % 81, Sodium Level 141, Total Bilirubin 0.8, Total Protein 7.6, White Blood Count 9.73 07/17/16 07:35: Urine Bacteria Rare, Urine Bilirubin Negative, Urine Blood 1+, Urine Clarity Clear, Urine Collection Type Clean catch, Urine Color Yellow, Urine Glucose (UA ) Negative, Urine Ketones Trace, Urine Leukocyte Esterase Negative, Urine Microscopic RBC 2-5, Urine Nitrite Negative, Urine Protein Negative, Urine Specific [place] 1.020, Urine Squamous Epithelial Cells >100, Urine Urobilinogen 0.2, Urine WBC 0-2, Urine pH 5.5, Volume Urine Centrifuged 10 ml IMAGING: CT suggests mesenteric adenitis IMPRESSION: Shotty mild mesenteric adenopathy raising the question of adenitis. Fluid-filled small and large bowel loops without differential air-fluid levels, substantial dilatation or transition zone could be seen in nonspecific enterocolitis or hypermobile state. No significant bowel wall thickening or perienteric edema. No fluid collection, unobstructed urinary tracts, remaining structures normal. ASSESSMENT/PLAN Nausea and vomiting with diarrhea- dehydration- ?gastroenteritis Mesenteric adenitis on CT - will check a GI panel for PCR Dehydration- On IV fluids now Abdominal Pain- continue pain medication PCOS- stable F/V/E- IV Fluids, clear liquids Code Status- Full code Disposition- Inpatient for above issues. Dr Giles' note : pt. appears to be in some distress. Somewhat amazingly pt has no electrolyte abnormalities after 4 days of what she describes as non stop vomiting and diarrhea. Iplan to adjust the dosage on her zofran med. I have read the H AND P done by and I fully agree with her findings and assessments. Allergies/Home Medications Allergies: Coded Allergies: adhesive (Verified Allergy, Unknown, SKIN REDNESS, BLISTERS, 07/17/16) ceftriaxone (Verified Allergy, Unknown, 07/17/16) ketorolac (Verified Allergy, Unknown, 07/17/16) latex (Verified Allergy, Unknown, SKIN REDNESS, BLISTERS, 07/17/16) Reported Home Medications Scheduled Dicyclomine HCl (Dicyclomine HCl) 20 MG PO Q6H Escitalopram Oxalate (Escitalopram Oxalate) 20 MG PO DAILY (Reported) Metformin HCl (Metformin HCl) 500 MG PO BID WITH MEALS (Reported) Norethindrone-E.estradiol-Iron (Blisovi 24 Fe Tablet) 1 TAB PO DAILY (Reported) Pentosan Polysulfate Sodium (Elmiron) 100 MG PO TID (Reported) Promethazine Hcl (Phenergan) 25 MG HI Q6H Tramadol HCl (Tramadol HCl ER) 100 MG PO DAILY (Reported) Trazodone HCl (Desyrel) 250 MG PO HS (Reported) Scheduled PRN Albuterol Sulfate (Albuterol Sulfate) 1 VIAL INH QID PRN PRN SHORTNESS OF BREATH Albuterol Sulfate (Ventolin HFA) 2 PUFF IH every 4 hours PRN PRN SHORTNESS OF BREATH Butalb/Acetaminophen/Caffeine (Ofqjun-Ytzdnhjb-Qjab 50-325-40) 1 TAB PO Q4H PRN PRN HEADACHE (Reported) Cyclobenzaprine HCl (Flexeril) 10 MG PO TID PRN PRN PAIN Diphenoxylate HCl/Atropine (Lomotil) 1 EA PO Q6H PRN PRN DIARRHEA Lorazepam (Ativan) 1-2 MG PO DAILY PRN PRN ANXIETY (Reported) Ondansetron (Zofran ODT) 4 MG PO Q6H PRN PRN NAUSEA Oxycodone HCl/Acetaminophen (Oxycodone-Acetaminophen 7.5-325) 1 TAB PO BID PRN PRN SEVERE PAIN (Reported) Discontinued Medications Azithromycin (Azithromycin) 1 TAB PO DAILY Discontinued Reason: Course completed Clonazepam (Clonazepam) 0.5 MG PO TID (Reported) Discontinued Reason: Update list Diphenoxylate HCl/Atropine (Lomotil) 1 EA PO Q6H PRN PRN DIARRHEA Discontinued Reason: Update list Metformin HCl (Metformin HCl ER) 500 MG PO BID (Reported) Discontinued Reason: Update list Methocarbamol (Robaxin-750) 750 MG PO TID Discontinued Reason: Update list Mirtazapine (Remeron) 1 TAB PO DAILY (Reported) Discontinued Reason: Update list Orphenadrine Citrate (Norflex) 1 TAB PO BID (Reported) Discontinued Reason: Update list Oxycodone HCl/Acetaminophen (Percocet 5mg/325mg) 1 TAB PO Q4H PRN PRN PAIN Discontinued Reason: Update list Oxycodone HCl/Acetaminophen (Percocet 5mg/325mg) 1-2 TAB PO Q4H PRN PRN PAIN Discontinued Reason: Update list Prednisone (Deltasone) 1 TAB PO DAILY (Reported) Discontinued Reason: Update list Tramadol HCl (Tramadol HCl) 1-2 TAB PO Q6H PRN PRN PAIN (Reported) Discontinued Reason: Update list Trazodone HCl (Desyrel) 2 TAB PO HS (Reported) Discontinued Reason: Update list Durable Medical Equipment Nebulizer (Compact Compressor Nebulizer) 1 EACH (DME) Copies to: End of Report . Dede Cortez [employer] M[employer]ING MACHINE OPERATOR Jul 17, 2016 11:20 MICHAEL GILES DO Jul 17, 2016 21:30
--- NOTE | 2016-07-17 11:30 | NUR ---
Stool sample has been sent to lab. Patient has intermittent episodes of nausea and vomiting.
[2016-07-17] MEDS: D5 1/2 NS W/KCL 20 MEQ/L 1,000 ML IV SCH ×2 (11:36→22:32)
[2016-07-17] MEDS: HYDROmorphone 1 MG/ML (DILAUDID) SYRINGE IV PRN ×4 (11:40→21:05)
[2016-07-17] MEDS: PANTOPRAZOLE IV 40 MG in SODIUM CHLORIDE FLUSH 10 ML IV SCH (11:46)
[2016-07-17] MEDS: PROMETHAZINE HCL INJ 12.5 MG in SODIUM CHLORIDE 25 ML IV PRN ×2 (11:53→18:05)
[2016-07-17 13:00] VITALS: BP 118/70
--- NOTE | 2016-07-17 13:52 | NUR ---
Sleeping. Resp. rate= 28.
[2016-07-17] MEDS ORDERED: ALBUTEROL HFA (VENTOLIN HFA) COMMON CANNISTER IH PRN (15:10)
[2016-07-17] MEDS ORDERED: TRAZ100T92 PO (15:36)
--- NOTE | 2016-07-17 16:00 | NUR ---
It has been difficult to control the patient's nausea even with Zofran and Phenergan on board every 6 hours. She has vomited a small amount several times today as well as frequent loose stools.
[2016-07-17 16:03] VITALS: BP 163/93
[2016-07-17] MEDS ORDERED: PENT100C3 PO (16:03)
[2016-07-17] MEDS ORDERED: NORE-132 PO (16:03)
[2016-07-17] MEDS ORDERED: [UNRECOGNIZED DRUG - CODE] PO (16:03)
[2016-07-17] MEDS ORDERED: METF500T4 PO (16:03)
[2016-07-17] MEDS ORDERED: OXYC1TAB7 PO (16:03)
[2016-07-17] MEDS ORDERED: TRAM100T26 PO (16:03)
[2016-07-17] MEDS ORDERED: LORA1TAB PO (16:20)
[2016-07-17] MEDS: LORazepam 2 MG/ML (ATIVAN) 1 ML VIAL IV PRN (16:52)
--- NOTE | 2016-07-17 17:00 | NUR ---
Discussed patient's anxiety, home medications , and continued nausea with Dr. Giles.
[2016-07-17] MEDS ORDERED: CLONAZEPAM 0.5 MG PO SCH (18:00)
--- NOTE | 2016-07-17 18:10 | NUR ---
MED REC COMPLETE--current med list obtained from external med history, list provided by patient's PCP (Dr. Holland Kenney), and patient report.
--- NOTE | 2016-07-17 19:00 | NUR ---
Patient is sleeping after the last dose of Phenergan and Dilaudid.
[2016-07-17 19:48] VITALS: BP 114/74
--- NOTE | 2016-07-17 20:00 | NUR ---
Resting in bed. Denies nausea. Is alert and oriented. in room. Ice to back due to chronic back pain. No nausea at this time. Call light within reach.
--- NOTE | 2016-07-17 21:00 | NUR ---
BS are clear, room air 97%. Pt. states no tx's at this time.
[2016-07-17] MEDS: traZODone 100 MG (DESYREL) TABLET PO SCH (21:03)
--- NOTE | 2016-07-17 21:05 | NUR ---
Dilaudid 1mg administered IV for abdominal discomfort. Warm blankets given. Call light in reach. Remains on Droplet precautions. UA obtained and taken to Lab. Denies Nausea. IV patent without complications to site.
[2016-07-17 21:48] LABS: AMPHETAMINE SCREEN, URINE Negative (Negative); CANNABINOID SCREEN, URINE Positive (Negative); METHAMPHETAMINE SCREEN URINE S NEGATIVE (NEGATIVE); OPIATE SCREEN URINE Positive (Negative); PROPOXYPHENE STAT NEGATIVE (NEGATIVE)
[2016-07-17] MEDS: ALBUTEROL 0.083% NEB SOLUTION 2.5 MG/3 ML VIAL INH PRN (23:42)
[2016-07-18 00:02] VITALS: BP 138/60
[2016-07-18] MEDS: ONDANSETRON 2 MG/ML (Z0FRAN) 2 ML VIAL IV PRN ×3 (00:27→16:34)
[2016-07-18] MEDS: HYDROmorphone 1 MG/ML (DILAUDID) SYRINGE IV PRN ×2 (00:28→07:27)
--- NOTE | 2016-07-18 00:28 | NUR ---
Zofran 8mg administered IV for nausea. After Zofran administered was given Dilaudid 1mg for abdominal discomfort as requested. Call light within reach.
[2016-07-18] MEDS: LORazepam 2 MG/ML (ATIVAN) 1 ML VIAL IV PRN ×4 (01:31→20:29)
--- NOTE | 2016-07-18 02:16 | NUR ---
Pt. requesting nebulizer tx. at [id number], [email or web address]. well, BS are clear, NPC. Room air 96%.
[2016-07-18 04:55] VITALS: BP 107/68
[2016-07-18 06:22] LABS: BASOPHILS % (AUTO) 0 % (0-2); EOSINOPHILS % (AUTO) 1 % (0-4); LYMPHOCYTES # (AUTO) 0.9 X10^3; MEAN CORPUSCULAR HEMOGLOBIN 30.9 PG (26.0-34.0); MEAN CORPUSCULAR HGB CONC 33.5 g/dL (31.0-37.0); MEAN CORPUSCULAR VOLUME 92 FL (80-100); MEAN PLATELET VOLUME 11.6 FL (6.0-9.5); MONOCYTES # (AUTO) 0.4 X10^3; MONOCYTES % (AUTO) 11 % (3-11); NEUTROPHILS # (AUTO) 1.8 X10^3; NEUTROPHILS % (AUTO) 58 % (51-67); PLATELET COUNT 166 10^3uL (150-450); WHITE BLOOD COUNT 3.08 10^3uL (4.0-11.0)
--- NOTE | 2016-07-18 06:30 | NUR ---
Rested at long intervals tonight. No emesis. No loose stools. IV patent without complications to site.
[2016-07-18 06:51] LABS: ANION GAP 13.8 MEQ/L (3-15); CALCULATED IONIZED CALCIUM 3.9 mg/dL (3.8-4.6); TOTAL PROTEIN 6.1 g/dL (6.4-8.5)
--- NOTE | 2016-07-18 07:27 | NUR ---
Dilaudid 1mg administered for abdominal discomfort. Has been very sleepy tonight. When she wakes up is wanting more medicine. Taking liquids without nausea.n No emesis during the night. Call light within reach.
[2016-07-18] MEDS: D5 1/2 NS W/KCL 20 MEQ/L 1,000 ML IV SCH (07:28)
[2016-07-18 08:07] VITALS: BP 104/66
[2016-07-18] MEDS: CITALOPRAM 40 MG (CELEXA) TABLET PO SCH (08:41)
[2016-07-18] MEDS: PANTOPRAZOLE IV 40 MG in SODIUM CHLORIDE FLUSH 10 ML IV SCH (08:42)
--- NOTE | 2016-07-18 08:56 | NUR ---
Pt resting in bed, moaning- requests pain medicine- educated patient that she previously had Dilaudid around 0730- pt states "Oh I thought I was dreaming, can I have Ativan then?" Ativan 1mg IV given at request for "starting to feel anxious". Pt given Zofran 8mg IV to prevent further nausea after clear liquid tray- she consumed approx 50% then starting asking for crackers. IVF infusing as ordered into [facility] without difficulty. WIll cont to monitor. Call light within reach.
[2016-07-18] MEDS ORDERED: MIRTAZAPINE 15 MG (REMERON) TABLET PO SCH (09:00)
[2016-07-18] MEDS ORDERED: ESCITALOPRAM 10 MG (LEXAPRO) TABLET PO SCH (09:00)
--- NOTE | 2016-07-18 09:33 | NUR ---
IV SL at this time per Yakelin [employer]- Pt dressing in her own clothes. Crackers provided with ok from Melonie Cortez.
--- NOTE | 2016-07-18 09:35 | Progress Note (E) ---
Progress Note S: Awake and alert- states she vomited yesterday but none through night or this am. O: Vital Signs Date Time Temp Pulse Resp B/P Pulse Ox O2 Delivery O2 Flow Rate FiO2 07/18/16 08:07 97.4 104 18 104/66 96 Room air I & O Past 24 hrs 07/18/16 06:59 Intake Total 3388 ml Output Total 1500 ml Balance 1888 ml Intake Oral 1563 ml IV Total 1825 ml Output Urine Total 950 ml Emesis 550 ml # Bowel Movements 2 EN: Awake, alert, oriented, NAD HEENT: EOMI, PERRL, moist oral mucosa. CV: RRR S1 S2 normal with no murmur LUNGS: CTA B ABD: Soft, NT/ND with hypoactive bowel sounds.Tender EXTR: No C/C/E. Normal peripheral pulses. INTEG: No rash. Tattoo on chest and ankle NEURO: No focal motor neuro deficit. Weight: 96.5 kg CBC BMP Last 24 Hrs 07/18/16 06:05 Laboratory Results Past 24 Hrs 07/17/16 11:15: Stool Adenovirus (PCR) Negative, Stool Astrovirus (PCR) Negative, Stool C. difficile Toxin (PCR) Negative, Stool Campylobacter PCR Negative, Stool Cryptosporidium PCR Negative, Stool Cyclospora cayetanensis (PCR) Negative, Stool E coli O157 PCR Negative, Stool E. coli Shiga Toxins Negative, Stool Entamoeba histolytica (PCR) Negative, Stool Enteroaggregative E coli PCR Negative, Stool Enteropathogenic E. coli (PCR Negative, Stool Enterotoxigenic Ecoli PCR Negative, Stool Giardia Lamblia PCR Negative, Stool Norovirus GI/GII PCR Positive, Stool Plesiomonas shigelloides PCR Negative, Stool Rotavirus A PCR Negative, Stool Salmonella PCR Negative, Stool Sapovirus (PCR) Negative, Stool Shigella/EIEC (PCR) Negative, Stool Vibrio (PCR) Negative, Stool Vibrio cholera (PCR) Negative, Stool Yersinia enterocolitica (PCR) Negative 07/17/16 21:16: Ur Tricyclic Antidepressants Screen Negative, Urine Amphetamines Screen Negative , Urine Barbiturates Screen Negative, Urine Benzodiazepines Screen Positive, Urine Cannabinoids Screen Positive, Urine Cocaine Screen Negative, Urine Methadone Screen Negative, Urine Methamphetamines Screen Negative, Urine Opiates Screen Positive, Urine Oxycodone Screen Negative, Urine Phencyclidine Screen Negative, Urine Propoxyphene Screen Negative 07/18/16 06:05: Alanine Aminotransferase (ALT/SGPT) 43, Albumin 3.0, Albumin/Globulin Ratio 0.967, Alkaline Phosphatase 43, Anion Gap 13.8, Aspartate Amino Transf (AST/SGOT ) 21, BUN/Creatinine Ratio 8, Basophils # (Auto) 0.0, Basophils (%) (Auto) 0, Blood Urea Nitrogen 7, Calcium Level 8.1, Calcium/Ionized Calcium Ratio 3.9, Calculated Osmolality 269, Carbon Dioxide Level 20, Chloride Level 109, Creatinine 0.84, Eosinophils # (Auto) 0.0, Eosinophils (%) (Auto) 1, Estimat Glomerular Filtration Rate 100.8, Estimated GFR (Non- 83.3, Glucose Level 114, Hematocrit 36.70, Hemoglobin 12.3, Lymphocytes # (Auto) 0.9, Lymphocytes (%) (Auto) 29, Mean Corpuscular Hemoglobin 30.9, Mean Corpuscular Hemoglobin Concent 33.5, Mean Corpuscular Volume 92, Mean Platelet Volume 11.6, Monocytes # (Auto) 0.4, Monocytes (%) (Auto) 11, Neutrophils # (Auto) 1.8, Neutrophils (%) (Auto) 58, Platelet Count 166, Potassium Level 3.7, Red Blood Count 3.98, Red Cell Distribution Width 12.4, Sodium Level 140, Total Bilirubin 0.6, Total Protein 6.1, White Blood Count 3.08 IMAGING: CT suggests mesenteric adenitis IMPRESSION: Shotty mild mesenteric adenopathy raising the question of adenitis. Fluid-filled small and large bowel loops without differential air-fluid levels, substantial dilatation or transition zone could be seen in nonspecific enterocolitis or hypermobile state. No significant bowel wall thickening or perienteric edema. No fluid collection, unobstructed urinary tracts, remaining structures normal. ASSESSMENT/PLAN Nausea and vomiting with diarrhea- dehydration- due to NOROVIRUS positive on PCR Dehydration- resolved, IV fluids dc'd today Abdominal Pain- continue pain medication PCOS- stable F/V/E- IV Fluids dc'd , tolerates clear liquids and will advance her diet Code Status- Full code Disposition- Inpatient for above issues. Home later today if she continues to improve- DR ALEXANDRA' NOTE : When I first saw Mrs Foster today she strongly complained of being taken off the IV dilaudid. She tried to maneuver me into promising to restart it. I would not promise to prescribe it anymore.We prescribed percocet which she later claimed to have thrown up,but there were no bits or pieces of the pill found in the emesis [a very small amount] she then showed to LANNY Richey. wHEN SHE FAILED TO GET MORE DILAUDID SHE DEMANDED TO SEE THE don,the boiling house oiler and me. She threatened to call her diabetes territory manager.When we met in her room she very strongly denied and contradicted both what Dede Cortez and LANNY Richey had told me, ie that she had no emesis both last night and this am.Of course yesterday she told me she had over 30 episodes of emesis in about 4 hours after she was placed into her room her at the hospital. Both Lula AND mRS Helms WERE IN THE ROOM WITH THE PATIENT AND ME. We all agreed we would do our best to help her feel better soon Ihave read the progress note done by Ms Cortez and I agree with it in full. Dede Cortez APRN Jul 18, 2016 09:35 MICHAEL ALEXANDRA DO Jul 18, 2016 16:28
[2016-07-18] MEDS: oxyCODONE/ACETAMINOPHEN 5MG-325 MG (PERCOCET) TABLET PO PRN (10:22)
--- NOTE | 2016-07-18 10:35 | NUR ---
Pt provided with fresh water and wilbert crackers- requests pain meds- Educated patient that IV Dilaudid Has been discontinued and that Percocet 7.5mg PO has been ordered- patient agrees to try Percocet- given now. at bedside.
[2016-07-18] MEDS: PROMETHAZINE HCL INJ 12.5 MG in SODIUM CHLORIDE 25 ML IV PRN ×2 (11:00→18:31)
--- NOTE | 2016-07-18 11:02 | NUR ---
Pt calls nurse to room- is retching in bed. Had approx 50ml liquid emesis- states she threw up percocet pills- asking to restart IV Dilaudid. Phenergan 12.5mg IV infusing now
[2016-07-18 11:39] VITALS: BP 108/64
--- NOTE | 2016-07-18 14:40 | NUR ---
Pt sleeping at this time. Jose RN checked on patient- Patient was unaware of staff in room at all. Call light within reach.
[2016-07-18] MEDS: morphine INJ 2 MG/ML 1 ML SYRINGE IV PRN ×4 (15:27→20:29)
--- NOTE | 2016-07-18 15:38 | NUR ---
Pt calls nurse to room- wants to know new plan of care after meeting with Dr. Giles, Rizwana Deshpande RN and Fabienne Sevilla at 1315 this afternoon. Educated patient that IVF will be started for hydration- started at this time, that Morphine is available every hour as need for pain (given now-Morphine 2mgIV for abdominal cramping rated 8/10), and that Ativan 1mg IV frequency was increased to every 4hours as needed (given now at patient request for anxiety related to her frustration earlier this afternoon)- educated patient that this nurse did not start any new interventions from time of meeting until now because she was sound asleep and did not notice that the nurse operations program manager or this nurse had checked on patient while sleeping- patient states to this nurse "sleeping is my coping mechanism after I get stressed out like that. the nurses are really nice here, I just go upset that I'm in pain and don't feel good." Updated plan of care of white board in room so that patient could have updated info. Verbalizes understanding on plan of care and to let nurse know when pain returns. Pt is thankful to this nurse and Vee MARTINEZ for care received. Will cont to monitor patient closely and provide a relaxing environment- door slightly ajar for noise control, gives okay for blinds to remain open.
[2016-07-18 15:52] VITALS: BP 126/72
--- NOTE | 2016-07-18 16:45 | NUR ---
Pt calls nurse to room- Requests "Zofran for nausea". Given by Bharti Rivera RN. Pt is sitting upright in bed, playing card game with her . Kristin states that as she was removing her isolation gown to leave room she asked "Is there anything else I can get you?" Pt stated "no not right now, thank you." As Kristin was leaving doorway, patient states "Oh excuse me ma'am, actually she gave me that pain medicine an hour ago and said I could have it every hour, can you have her bring it in?" Rates abd pain 11/21. Kristin reports no facial grimacing, guarding or moaning. Will assess patient now
--- NOTE | 2016-07-18 18:31 | NUR ---
Pt calls nurse to room- is retching while sitting in bed- no emesis at this time. Phenergan infusing as ordered- States she is needing pain medicine for 9/10 abd pain.
[2016-07-18] MEDS ORDERED: LIDOCAINE PF 1% (XYLOCAINE) 2 ML VIAL INJ ONE (18:57)
--- NOTE | 2016-07-18 19:45 | NUR ---
Pt c/o IV to [facility]- [facility] for IV start. Pt refused to let Sarah attempt another IV start after first attempt.
[2016-07-18 20:00] VITALS: BP 140/70
--- NOTE | 2016-07-18 20:00 | NUR ---
Patient reports tenderness to IV site in right half backer. Site with slight swelling, no redness. Patient states "my whole arm is swollen!" 20g started to patient's left forearm on first attempt by this nurse, patient tolerates well. IV to right half backer discontinued. Fluids restarted, IV Morphine and Ativan given per patient request. Patient requesting to try ice chips and water at this time, states that she knows she needs to "take it slow" with oral intake because she has been so nauseated. Appears calm when talking to staff at this time. No needs at this time, will continue to monitor.
[2016-07-18] MEDS: traZODone 100 MG (DESYREL) TABLET PO SCH (20:22)
--- NOTE | 2016-07-18 22:00 | NUR ---
Patient resting in bed with eyes closed, respirations even and unlabored. Will continue to monitor.
--- NOTE | 2016-07-19 02:05 | NUR ---
Patient calls for pain medication at this time. This nurse asks if patient would like to try PO Percocet since she was able to go so long without pain medication and patient requests Morphine. IV Morphine, Zofran, and Ativan given per patient's request. No further needs at this time. Will continue to monitor.
[2016-07-19] MEDS: morphine INJ 2 MG/ML 1 ML SYRINGE IV PRN ×4 (02:06→10:16)
[2016-07-19] MEDS: ONDANSETRON 2 MG/ML (Z0FRAN) 2 ML VIAL IV PRN ×4 (02:07→21:53)
[2016-07-19] MEDS: LORazepam 2 MG/ML (ATIVAN) 1 ML VIAL IV PRN ×5 (02:07→19:02)
[2016-07-19 02:15] VITALS: BP 120/78
[2016-07-19] MEDS: PROMETHAZINE HCL INJ 12.5 MG in SODIUM CHLORIDE 25 ML IV PRN ×2 (06:06→17:10)
--- NOTE | 2016-07-19 06:10 | NUR ---
Patient utilizes Morphine, Ativan, and Phenergan at this time. Reports no further needs at this time.
[2016-07-19 06:14] LABS: MEAN CORPUSCULAR HEMOGLOBIN 31.2 PG (26.0-34.0); MEAN CORPUSCULAR HGB CONC 33.2 g/dL (31.0-37.0); MEAN CORPUSCULAR VOLUME 94 FL (80-100); MEAN PLATELET VOLUME 11.6 FL (6.0-9.5); PLATELET COUNT 171 10^3uL (150-450); WHITE BLOOD COUNT 3.15 10^3uL (4.0-11.0)
[2016-07-19 06:22] LABS: BAND NEUTROPHILS % 2 % (0-6); EOSINOPHILS % 2 % (0-4); LYMPHOCYTES # 1.8 #
[2016-07-19 06:25] LABS: MONOCYTES # 0.1 #; MONOCYTES % 4 % (3-11); RBC MORPH NORMAL (NORMAL); SEGMENTED NEUTROPHILS % 33 % (51-67); TOTAL CELLS COUNTED 100
[2016-07-19 06:32] LABS: ANION GAP 13.5 MEQ/L (3-15)
[2016-07-19 07:57] VITALS: BP 100/62
[2016-07-19] MEDS: CITALOPRAM 40 MG (CELEXA) TABLET PO SCH (08:45)
[2016-07-19] MEDS: PANTOPRAZOLE IV 40 MG in SODIUM CHLORIDE FLUSH 10 ML IV SCH (08:45)
--- NOTE | 2016-07-19 09:22 | Progress Note (E) ---
Progress Note S; Awake and alert- eating a little bit this am, no reported vomiting or bloody emesis. She declines to get up and shower, just feels dizzy, I did visit with her about letting her PCP Dr Felipe Kenney aware of her current condition and she was fine with that. I spoke with Dr Wang by phone- said they are working on issues with her and that they had discussed signing a contract about not using drugs or THC- that hadn't been signed yet. He is aware of her admission and her wanting pain meds and not wanting to get out of bed. He wants to see her Friday Am at 9:15. I updated him on her labs and progress, CT scan etc. O: I & O Past 24 hrs 07/19/16 07:00 Intake Total 1879 ml Output Total 2900 ml Balance -1021 ml Intake Oral 473 ml IV Total 1406 ml Output Urine Total 2900 ml Vitals: Vital Signs Date Time Temp Pulse Resp B/P Pulse Ox O2 Delivery O2 Flow Rate FiO2 07/19/16 07:57 97.5 60 18 100/62 96 Room air GEN: Awake, alert, oriented, NAD- resting in bed- flat affect HEENT: EOMI, PERRL, moist oral mucosa. CV: RRR S1 S2 normal with no murmur LUNGS: CTA B ABD: Soft, NT/ND with hypoactive bowel sounds. Slight Tender EXTR: No C/C/E. Normal peripheral pulses. INTEG: No rash. NEURO: No focal motor neuro deficit. Weight: 96.5 kg CBC BMP Last 24 Hrs 07/18/16 06:05 CBC BMP Last 24 Hrs 07/19/16 05:50 Laboratory Results Past 24 Hrs 07/19/16 05:50: Absolute Band Neutrophils 0.1, Anion Gap 13.5, BUN/Creatinine Ratio 7, Band Neutrophils % 2, Basophils # (Auto) , Basophils # (Manual) 0.0, Basophils % ( Manual) 0, Basophils (%) (Auto) , Blood Morphology Comment Normal, Blood Urea Nitrogen 7, Calcium Level 8.3, Carbon Dioxide Level 21, Chloride Level 114, Creatinine 0.99, Differential Total Cells Counted 100, Eosinophils # 0.1, Eosinophils # (Auto) , Eosinophils % (Manual) 2, Eosinophils (%) (Auto) , Estimat Glomerular Filtration Rate 83.4, Estimated GFR (Non- 68.9, Glucose Level 83, Hematocrit 35.20, Hemoglobin 11.7, Lymphocytes # 1.8, Lymphocytes # (Auto) , Lymphocytes % (Manual) 59, Lymphocytes (%) (Auto) , Mean Corpuscular Hemoglobin 31.2, Mean Corpuscular Hemoglobin Concent 33.2, Mean Corpuscular Volume 94, Mean Platelet Volume 11.6, Metamyelocytes % 0, Monocytes # 0.1, Monocytes # (Auto) , Monocytes % (Manual) 4, Monocytes (%) (Auto) , Neutrophils # 1.0, Neutrophils # (Auto) , Neutrophils (%) (Auto) , Platelet Count 171, Potassium Level 3.9, Red Blood Count 3.75, Red Cell Distribution Width 12.5, Segmented Neutrophils % 33, Sodium Level 145, White Blood Count 3.15 IMAGING: CT suggests mesenteric adenitis IMPRESSION: Shotty mild mesenteric adenopathy raising the question of adenitis. Fluid-filled small and large bowel loops without differential air-fluid levels, substantial dilatation or transition zone could be seen in nonspecific enterocolitis or hypermobile state. No significant bowel wall thickening or perienteric edema. No fluid collection, unobstructed urinary tracts, remaining structures normal. ASSESSMENT/PLAN Nausea and vomiting with diarrhea- dehydration- due to NOROVIRUS positive on PCR Dehydration- resolved. IV fluids have been discontinued Abdominal Pain- she is continuing to ask for pain medication THC abuse- discussed this with Dr Wang - he is aware of this PCOS- stable F/V/E- IV Fluids dc'd , ANA M Code Status- Full code Disposition- Inpatient for above issues. Have tried to encourage her to get up and shower, she declines, states she is not feeling well- dizzy. Should be able to go home later today- appt Dr Wang Friday to resolve issues they have been working on. Yesterday she refused discharge. Pt. asked me to come down and visit her with her . He wanted a form filled out for family leave. WE did fill out that form for him.She has denied soa,chest pain,abdominal pain ,and any leg pain with walking. She does CONtinue to c/o abdominal pain and she requests morphine about every hour. lungs are CTA,ALL LOVELL heart shows rrr .but without murmur abdomen shows no pain to light pressure and bs are active legs have no c/c/edema assessment : Nausea and vomiting with diarrhea- dehydration- due to NOROVIRUS positive on PCR Dehydration- resolved, IV fluids dc'd today Abdominal Pain- continue pain medicatio plan: We shall discharge patient as soon as she agrees to allow us to do so. I have reviewed the progress note and assessment and plan as outlined by Diego and I do agree with her findings and conclusions. Dede Cortez CONTRACT POST OFFICE CLERK Jul 19, 2016 09:22 MICHAEL ALEXANDRA DO Jul 19, 2016 17:10
--- NOTE | 2016-07-19 10:25 | NUR ---
@0800 Pt is awake, but resting in bed, watching tv. Does not appear in distress. @0840 Pt calls for Morphine for pain rated 8/10 and Zofran for nausea- Both given at 0845 as ordered. Pt is sitting up in bed, asks for RN to help her find her wedding rings- states she lost them this morning after sanitizing her hands. Pt stood to move to chair- she turned around and found them in her bed under where she was sitting. This nurse changed linens. Pt refusing to shower- had bring her toiletries: dry shampoo spray, deodorant and facial wipes. Will cont to encourage patient to shower. @1010 Pt calls WAFER FABRICATOR to room- states she would like the RN to come look at her eye and requests Morphine and Ativan. RN reports this to Dr. Giles - asked him to examine her eye when rounding on patient. This nurse reports to room to assess left eye- patient had broken a blood vessel in left eye yesterday while retching. Questions answered regarding blood vessel in eye. @1015 Morphine 2mg IV given for 7/10 "dull aching in my back and stomach", as well as Ativan 1mg IV for anxiety. Pt asks for RN to contact human resources here to answer questions regarding her Husbands FMLA- talked to Skye in HR and Rizwana Mohamud RN- Instructed patient to call her husbands employer for this information as each facility differs in their policies- patient verbalizes understanding and thanks RN for assistance. Denies further needs at this time. @ 1025- enters room.
--- NOTE | 2016-07-19 11:15 | NUR ---
HR 85, O2 95% on RA, ETCO2 33, RR 20. Addendum: 07/19/16 at 1152 by Arely Olivares RN disregard above note- wrong patient.
--- NOTE | 2016-07-19 11:45 | NUR ---
Dr. Cantu and this nurse at bedside for rounding. Dr. Cantu discussed plan of care for today as well as changing pain medications from morphing to Nubain- patient asked how frequent she could have nubain and if would be IV route. at bedside- they both ask questions of Dr. Cantu regarding FMLA paperwork and if Dr. Cnatu could fill it out and return it back to them for 1 week off of work after she is dismissed from hospital. Dr. Cantu awaiting faxed FMLA paperwork from their employers. Pt is c/o abd pain at this time- Dr. Cantu changing meds now for next dose. Addendum: 07/19/16 at 1157 by Arely Olivares RN Pt remained calm and thanked Dr. Cantu multiple times during rounds.
[2016-07-19] MEDS: NALBUPHINE 10 MG/ML (NUBAIN) 1 ML AMP IV PRN ×5 (12:30→21:53)
--- NOTE | 2016-07-19 12:30 | NUR ---
Pt calls nurse for pain medications- Nubain 2mg IV given as ordered for abdominal and back pain rated 8/10.
--- NOTE | 2016-07-19 14:45 | NUR ---
Pt calls nurse to room- looks up at white board and asks "can I have my pain medicine." patient sitting on bed, watching tv, no facial grimacing, no changes in VS. Also asking for Ativan and zofran. Pt is not vomiting, but states she is nauseated.
--- NOTE | 2016-07-19 15:36 | NUR ---
Pt has asked for a bowl of soup on 2 separate occasions since having eaten her lunch tray. No n/v after eating. States "I feel a whole lot better" to Hakeem MARTINEZ. at bedside.
[2016-07-19 15:39] VITALS: BP 130/78
--- NOTE | 2016-07-19 16:18 | NUR ---
Pt calls REVENUE SETTLEMENTS ADMINISTRATOR to room- requests to shower. THis nurse SL IV for shower- asked patient if she is feeling any better this afternoon. Pt states "Oh, a little bit."
[2016-07-19] MEDS: SODIUM CHLORIDE FLUSH 10 ML SYR IV PRN (17:11)
--- NOTE | 2016-07-19 18:08 | NUR ---
Patients mother arrived to visit at 1800- At this time patient calls for c/o SOA- Iliana RT notified, PROFESSIONAL FIGHTER in room checking VS- O2 sats 96% HR 95, RR 22. PROFESSIONAL FIGHTER states that patient asks for Ativan for anxiety- Unavailable at this time. Pt educated on this- became irritable to PROFESSIONAL FIGHTER. PROFESSIONAL FIGHTER's Hakeem and Vee report that tension is felt in room between and mother. Will cont to monitor.
--- NOTE | 2016-07-19 18:28 | NUR ---
Pt calls from bathroom- has vomited while on toilet. Had approx 300ml liquid emesis . This nurse helped clean patient and change clothes. Back to bed to rest. Asks for a sprite- given. Pt instructed to only sip on clear liquids- verbalizes understanding. Housekeeping cleaning room now. Dr. Giles notified- no new orders.
[2016-07-19] MEDS: traZODone 100 MG (DESYREL) TABLET PO SCH (20:37)
[2016-07-19] MEDS: SODIUM CHLORIDE FLUSH 3 ML SYR IV PRN (21:54)
--- NOTE | 2016-07-19 23:42 | NUR ---
Pt resting quietly in bed with eyes closed. No apparent s/s distress or pain.
--- NOTE | 2016-07-20 04:07 | NUR ---
Pt resting quietly with eyes closed. No apparent s/s of pain.
[2016-07-20 05:46] VITALS: BP 120/60
--- NOTE | 2016-07-20 06:10 | NUR ---
Pt has continued to rest since approximately 2229. PRN nubain provided x2 this shift for c/o abdominal pain. Resp even and non labored on RA. SL intact. Pt has tolerated cream of wheat without nausea or vomiting, however, did provide pt with PRN zofran before she ate the cereal to hopefully prevent n/v. No apparent s/s of pain.
[2016-07-20 07:26] VITALS: BP 125/70
[2016-07-20] MEDS: SODIUM CHLORIDE FLUSH 10 ML SYR IV PRN ×2 (07:30→12:26)
[2016-07-20] MEDS: oxyCODONE/ACETAMINOPHEN 5MG-325 MG (PERCOCET) TABLET PO PRN (07:30)
[2016-07-20] MEDS: ONDANSETRON 2 MG/ML (Z0FRAN) 2 ML VIAL IV PRN (07:30)
[2016-07-20] MEDS: ALBUTEROL 0.083% NEB SOLUTION 2.5 MG/3 ML VIAL INH PRN (07:30)
--- NOTE | 2016-07-20 07:30 | NUR ---
Patient resting in bed upon shift assessment. Reports generalized abdominal pain rated 7/10 on pain scale, nausea, "asthma problems", and anxiety. Denies SOA. Inquires about dismissal. PRN Percocet and Zofran provided. RT notified about request for PRN breathing treatment. Lung sounds CTAB. Respirations even and non-labored on roomair. HR RRR. Abdomen soft and round with hyperactive bowel sounds. Patient reports abdomen is mildly tender to touch. Updated on plan of care for shift. Call light in reach.
[2016-07-20] MEDS: CITALOPRAM 40 MG (CELEXA) TABLET PO SCH (08:14)
[2016-07-20] MEDS: PANTOPRAZOLE IV 40 MG in SODIUM CHLORIDE FLUSH 10 ML IV SCH (08:14)
[2016-07-20] MEDS: SODIUM CHLORIDE FLUSH 3 ML SYR IV PRN (09:22)
[2016-07-20] MEDS: LORazepam 2 MG/ML (ATIVAN) 1 ML VIAL IV PRN (09:23)
--- NOTE | 2016-07-20 11:09 | Progress Note (E) ---
Progress Note July Dr Alexandra' Note Mrs Foster tells me she is ready to go home today. She denies soa,chest pain,abdominal pain or any extremity pain. She admits to one episode of emesis last night at about 1800 hpurs, but the rest of her night was quite smooth. heart- rrr lungs-clear to auscultation,bilaterally abdomen- bs are active,non tender extremities show no c/c/edema assessment : Nausea and vomiting with diarrhea- dehydration- due to NOROVIRUS positive on PCR Dehydration- resolved. IV fluids have been discontinued Abdominal Pain- she is continuing to ask for pain medication THC use, chronic Plan : Pt. assures me she wishes togo home and we agreed to discharge her to home today. MICHAEL ALEXANDRA DO Jul 20, 2016 11:09
--- NOTE | 2016-07-20 11:40 | Discharge Summary (E) ---
Discharge Summary (A) Admit Date/Time Jul 17, 2016 at 11:24 Discharge Date/Time July 20 Admitting Provider Michael Giles DO Primary Care Provider Felipe Kenney MD Attending Provider Michael Giles DO Consulting Provider Admission Diagnosis Nausea,vomiting and diarrhea History and Present Illness Mrs. Foster was admitted through the ER and was given iv fluids and iv pain meds and iv antiemeics. Her lab work looked fine during her entire stay. We tried to discharge her to home on day 2 of her stay ,but she totally refused. She complained to hospital management when we tried to scale back or stop her IV narcotics. She had a very stable night lastnight and we agreed to fulfill her request today and discharge her to home. Hospital Course and Treatment see note above as patient had a very smooth course and did very well with the prescribed treatment. Procedures n/a Diet- regular Code Status-full code DVT prophylaxis-none Disposition- discharge to home, Discharge Physicial Exam Physical Exam General--Awake and alert. No distress. HEENT--Normocephalic. MMM in oral cavity. Lungs--Clear to auscultation bilaterally. Nonlabored respirations. Heart--RRR. No murmurs. Abdomen--Normal bowel sounds. Soft. Nondistended. Nontender. Extremities--No edema. neuro- cn ll-12 are grossly intact Radiology/Laboratory Data n/a Discharge Provider's Instructions Do take your home meds as prescribed. Activity Guidelines as tolerated Appointment Reminider Remember to see your pcp on Friday. Discharge Diet: Regular Discharge Diagnosis Nausea and vomiting with diarrhea- dehydration- due to NOROVIRUS positive on PCR Dehydration- resolved. IV fluids have been discontinued Abdominal Pain- she is continuing to ask for pain medication THC use, chroic Copies to: End of Report . MICHAEL GILES DO Jul 20, 2016 11:40
[2016-07-20] MEDS: NALBUPHINE 10 MG/ML (NUBAIN) 1 ML AMP IV PRN (12:26)
--- NOTE | 2016-07-20 13:19 | NUR ---
Patient tolerates full liquid diet for breakfast and lunch. No further emesis. Discharge order received. IV discontinued with catheter intact. No redness or swelling noted at insertion site. Instructions provided to patient and with verbal and written understanding expressed. [facility] paperwork and work release provided. Patient requests prescription for Percocet. Dr. Giles informed but denies request. Patient expresses understanding and states "I will be ok. I have been through alot and will make it the weekend". Dismissed ambulatory to private car accompanied by ASTRONAUT MISSION SPECIALIST and . No further needs.
== END 2016-07-20 13:20 | disposition home or self-care (01) | DRG 641 ==
LOC: EDUNIT# 07:03 → ED 07:05 → MED/SURG 09:45 → OBSVTOIN 11:24
DX: E86.0 Dehydration (principal); A08.11 Acute gastroenteropathy due to Norwalk agent; J45.909 Unspecified asthma, uncomplicated; G89.29 Other chronic pain
CPT/HCPCS: 36415; 74176; 80048; 80053; 80307; 81003; 81015; 81025; 83690; 84443; 85025; 86140; 87507; 94640; 96361; 96365; 96375; 96376; 99283; 99284

== ENCOUNTER 2016-08-10 08:35 | Emergency (ER) | payer OTHER ==
[~2016-08-10] VITALS: Ht 165.1 cm; Wt 98.0 kg
[~2016-08-10 08:35] MED LIST changes: +LORA1TAB PO; +METF500T4 PO; +NORE-132 PO; +OXYC1TAB7 PO; +PENT100C3 PO; +TRAM100T26 PO; +[UNRECOGNIZED DRUG - CODE] PO
[2016-08-10] MEDS ORDERED: SODIUM CHLORIDE FLUSH 10 ML SYR IV PRN (08:50)
[2016-08-10] MEDS ORDERED: SODIUM CHLORIDE FLUSH 3 ML SYR IV ONE (08:50)
[2016-08-10] MEDS ORDERED: ONDANSETRON 2 MG/ML (Z0FRAN) 2 ML VIAL IV ONE (08:50)
[2016-08-10 09:16] LABS: BASOPHILS % (AUTO) 0 % (0-2); EOSINOPHILS # (AUTO) 0.1 10^3uL; EOSINOPHILS % (AUTO) 1 % (0-4); LYMPHOCYTES # (AUTO) 2.1 X10^3; MEAN CORPUSCULAR HEMOGLOBIN 30.7 PG (26.0-34.0); MEAN CORPUSCULAR HGB CONC 33.4 g/dL (31.0-37.0); MEAN CORPUSCULAR VOLUME 92 FL (80-100); MONOCYTES # (AUTO) 0.5 X10^3; MONOCYTES % (AUTO) 8 % (3-11); NEUTROPHILS # (AUTO) 3.4 X10^3; NEUTROPHILS % (AUTO) 56 % (51-67); PLATELET COUNT 218 10^3uL (150-450); WHITE BLOOD COUNT 6.03 10^3uL (4.0-11.0)
[2016-08-10 09:21] LABS: BILIRUBIN,URINE Negative (Negative); CLARITY,URINE Cloudy; COLOR,URINE Yellow; GLUCOSE, URINE (UA) Negative (Negative); LEUKOCYTE ESTERASE ,URINE Negative (Negative); PH,URINE 8.5 (5.0 - 8.0); UROBILINOGEN,URINE 0.2 mg/dL (0.2-1.0)
[2016-08-10 09:32] LABS: ALBUMIN 4.2 g/dL (3.4-5.0); ALKALINE PHOSPHATASE 61 U/L (38-126); ANION GAP 15.6 MEQ/L (3-15); BUN/CREATININE RATIO 16 (10-20); CALCULATED IONIZED CALCIUM 3.9 mg/dL (3.8-4.6); LIPASE* 152 U/L (23-300); TOTAL PROTEIN 7.7 g/dL (6.4-8.5)
[2016-08-10 09:33] LABS: AMPHETAMINE SCREEN, URINE Negative (Negative); CANNABINOID SCREEN, URINE Positive (Negative); METHAMPHETAMINE SCREEN URINE S NEGATIVE (NEGATIVE); OPIATE SCREEN URINE Negative (Negative)
[2016-08-10 09:34] LABS: PROPOXYPHENE STAT POSITIVE (NEGATIVE)
[2016-08-10] MEDS ORDERED: HYDROmorphone 1 MG/ML (DILAUDID) SYRINGE IV ONE (09:50)
--- NOTE | 2016-08-10 09:52 | Diagnostic Imaging Report ---
INDICATION: History of Norovirus. Epigastric pain. FINDINGS: The lungs are clear. There is no free air under the diaphragm. There is no organomegaly. Bowel gas pattern appears normal. No evidence of constipation. No air-fluid levels. No pathologic calcification. IMPRESSION: Normal abdomen series. Dictated by: Dictated on workstation # [id number]
[2016-08-10] MEDS ORDERED: MIRT15TA PO (10:17)
[2016-08-10] MEDS ORDERED: HYOS0.1217 SL (10:17)
[2016-08-10] MEDS ORDERED: TOPI50TA86 PO (10:17)
[2016-08-10] MEDS ORDERED: QUET150T2 PO (10:19)
[2016-08-10] MEDS ORDERED: PROM50TA3 PO (10:19)
[2016-08-10] MEDS ORDERED: ONDA4TAB8 PO (10:20)
[2016-08-10] MEDS ORDERED: PROM25SU10 PR (10:20)
[2016-08-10 10:40] VITALS: BP 114/77
== END 2016-08-10 10:46 | disposition home or self-care (01) ==
LOC: EDUNIT# 08:35 → ED 08:37
DX: A08.39 Other viral enteritis (principal); R10.84 Generalized abdominal pain; R11.2 Nausea with vomiting, unspecified; F12.10 Cannabis abuse, uncomplicated
CPT/HCPCS: 36415; 74022; 80053; 80307; 81003; 83690; 84703; 85025; 86140; 96374; 96375; 99284; J1170; J2405; J7030; 96361; 99283

== ENCOUNTER 2016-08-13 20:37 | Emergency (ER) | payer OTHER ==
[~2016-08-13] VITALS: Ht 165.1 cm; Wt 97.9 kg
[~2016-08-13 20:37] MED LIST changes: +HYOS0.1217 SL; +PROM50TA3 PO; +QUET150T2 PO; +TOPI50TA86 PO
[2016-08-13] MEDS ORDERED: QUET300T2 PO (20:56)
--- NOTE | 2016-08-13 20:56 | NUR ---
STATED HER PSYCH DR TOOK HER OFF TRAZADONE AND EXCITALOPRAM COLD [place]. PT IS VERY TEARFUL AT THIS TIME
[2016-08-13] MEDS ORDERED: LORazepam 2 MG/ML (ATIVAN) 1 ML VIAL IM ONE (21:25)
[2016-08-13] MEDS ORDERED: diphenhydrAMINE 50 MG/ML INJ (BENADRYL) IM ONE (22:25)
[2016-08-13] MEDS ORDERED: PROMETHAZINE 25 MG/ML (PHENERGAN) 1 ML VIAL IM ONE (22:25)
[2016-08-13] MEDS ORDERED: FAMOTIDINE 20 MG (PEPCID) TABLET PO ONE (22:25)
--- NOTE | 2016-08-13 22:40 | NUR ---
Pt dismissed to home. Instructions provided to pt and her spouse. Pt left ambulatory to POV. Denied other needs.
[2016-08-13 23:56] VITALS: BP 110/69
== END 2016-08-13 22:40 | disposition home or self-care (01) ==
LOC: ED 20:38
DX: F19.239 Other psychoactive substance dependence with withdrawal, unspecified (principal); F41.9 Anxiety disorder, unspecified
CPT/HCPCS: 96372; 99283; J1200; J2060; J2550; 99282

== ENCOUNTER 2016-08-19 17:47 | Emergency (ER) | payer OTHER ==
[~2016-08-19] VITALS: Ht 165.1 cm; Wt 95.9 kg
[~2016-08-19 17:47] MED LIST changes: +QUET300T2 PO
[2016-08-19] MEDS ORDERED: SODIUM CHLORIDE FLUSH 10 ML SYR IV PRN (18:00)
[2016-08-19] MEDS ORDERED: SODIUM CHLORIDE FLUSH 3 ML SYR IV ONE (18:00)
[2016-08-19] MEDS ORDERED: ONDANSETRON 4 MG (ZOFRAN) ORAL DISSOLVE TAB PO ONE (18:00)
[2016-08-19] MEDS ORDERED: LIDOCAINE PF 1% (XYLOCAINE) 2 ML VIAL INJ ONE (18:10)
--- NOTE | 2016-08-19 18:12 | NUR ---
PATIENT HAS ASKED FOR "NUMBING MEDICINE" WITH HER IV START. DR. VARGAS HAS OKAY'D AND ORDERED XYLOCAINE FOR USE WITH IV START.
[2016-08-19] MEDS ORDERED: HYDROmorphone 1 MG/ML (DILAUDID) SYRINGE IV ONE ×3 (18:15→20:20)
[2016-08-19] MEDS ORDERED: CLN.1T PO (18:15)
--- NOTE | 2016-08-19 18:45 | NUR ---
THREE UNSUCCESSFUL IV START ATTEMPTS ALL USING 1% LIDOCAINE PER PT REQUEST - HAD GOOD BLOOD FLASH BUT UNABLE TO THREAD CANNULA. Melonie CRUZ RN NOW LOOKING FOR IV SALINE LOCK SITE.
--- NOTE | 2016-08-19 18:52 | NUR ---
22 GA INSYTE TO LT FOREARM SITE ON FIRST ATTEMPT BY Melonie CRZU RN. SITE DOES HAVE SMALL ABOUT HEMATOMA AROUND INSERTION SITE BUT GOOD BLOOD RETURN AND SITE FLUSHES WELL WITH 15 ML NS.
[2016-08-19] MEDS ORDERED: ONDANSETRON 2 MG/ML (Z0FRAN) 2 ML VIAL IV ONE (19:35)
--- NOTE | 2016-08-19 19:47 | Diagnostic Imaging Report ---
EXAMINATION: Abdominal radiographs, acute series. DATE: August 19, 2016. CLINICAL INDICATION: A 26-year-old female, nausea, vomiting, and abdominal pain. History of colonoscopy today. COMPARISON: August 10, 2016. COMMENTS: Heart size and mediastinal contours are unremarkable. There is no identified pneumothorax. There is no large pleural effusion. There is no identified focal airspace consolidation. There is no identified free intraperitoneal air. There are gas-filled segments of large bowel with air-fluid levels present. There is no abnormal gas distention of small bowel loops. There is no identified pneumatosis or portal venous gas. IMPRESSION: 1. No free intraperitoneal air. 2. Air-fluid levels within large bowel which is an abnormal but nonspecific appearance. No identified abnormally distended gas-filled segments of small bowel. Dictated by: Dictated on workstation # [id number]
[2016-08-19 19:54] LABS: BASOPHILS % (AUTO) 0 % (0-2); EOSINOPHILS # (AUTO) 0.1 10^3uL; EOSINOPHILS % (AUTO) 1 % (0-4); LYMPHOCYTES # (AUTO) 2.3 X10^3; MEAN CORPUSCULAR HEMOGLOBIN 30.8 PG (26.0-34.0); MEAN CORPUSCULAR HGB CONC 34.2 g/dL (31.0-37.0); MEAN CORPUSCULAR VOLUME 90 FL (80-100); MONOCYTES # (AUTO) 0.6 X10^3; MONOCYTES % (AUTO) 10 % (3-11); NEUTROPHILS # (AUTO) 3.7 X10^3; NEUTROPHILS % (AUTO) 55 % (51-67); PLATELET COUNT 227 10^3uL (150-450); WHITE BLOOD COUNT 6.66 10^3uL (4.0-11.0)
[2016-08-19 19:59] LABS: ALBUMIN 3.7 g/dL (3.4-5.0); ANION GAP 17.5 MEQ/L (3-15); CALCULATED IONIZED CALCIUM 3.8 mg/dL (3.8-4.6); TOTAL PROTEIN 6.9 g/dL (6.4-8.5)
--- NOTE | 2016-08-19 20:05 | NUR ---
UP TO TOILET WITH TOUCH ASSIST OF SPOUSE ONLY. LESLEE.
--- NOTE | 2016-08-19 20:13 | NUR ---
PATIENT REPORTS HER MIGRAINE IN POSTERIOR NECK GETTING WORSE AND NOW RATED AT "8". ABD DISCOMFORT NOW "6". REPORTS INCREASED NAUSEA. DR. WILLIAMSON NOTIFIED OF PT COMPLAINTS.
[2016-08-19] MEDS ORDERED: PROMETHAZINE 25 MG/ML (PHENERGAN) 1 ML VIAL IM ONE (20:25)
[2016-08-19 20:31] LABS: BILIRUBIN,URINE Negative (Negative); CLARITY,URINE Clear; COLOR,URINE Yellow; GLUCOSE, URINE (UA) Negative (Negative); LEUKOCYTE ESTERASE ,URINE Trace (Negative); PH,URINE 7.5 (5.0 - 8.0); UROBILINOGEN,URINE 0.2 mg/dL (0.2-1.0)
--- NOTE | 2016-08-19 20:45 | NUR ---
COLD PACK TO PT'S POSTERIOR NECK PER HER REQUEST FOR HER "MIGRAINE".
[2016-08-19 20:52] LABS: RBC,URINE 0-2 /HPF; URINE CENTRIFUGED VOLUME 12 mL
--- NOTE | 2016-08-19 21:30 | Diagnostic Imaging Report ---
PROCEDURE: CT abdomen and pelvis with contrast. TECHNIQUE: Multiple contiguous axial images were obtained through the abdomen and pelvis after administration of intravenous contrast. INDICATION: Abdominal pain. Colonoscopy today. COMPARISON: 07/17/16. FINDINGS: The lung bases are clear. The liver is normal in size without focal lesions. The gallbladder is unremarkable. There is no biliary ductal dilatation. The spleen is normal. The pancreas, adrenal glands and kidneys are unremarkable. The bowel gas pattern is nonspecific. There is no free air. There is no ascites. There are no focal inflammatory changes. There is a cyst in right adnexa. There is no free pelvic fluid. The osseous structures are unremarkable. The appendix appeared to be filled with barium. IMPRESSION: Cyst in the right adnexa, presumably of ovarian etiology. No other acute abnormality of the abdomen or pelvis. Specifically, there is no free air to suggest colon perforation. Dictated by: Dictated on workstation # [id number]
[2016-08-19] MEDS ORDERED: SULFAMETHOXAZOLE/TRIMETHOPRIM 800-160 MG (SEPTRA DS) TAB PO ONE (21:45)
[2016-08-19] MEDS ORDERED: SULF1TAB35 PO (21:49)
[2016-08-19 22:05] VITALS: BP 117/67
[2016-08-20] MEDS ORDERED: ESCI10TA PO (08:39)
[2016-08-20] MEDS ORDERED: TRAZ100T92 PO (08:39)
[2016-08-20] MEDS ORDERED: QUET150T2 PO (08:39)
[2016-08-20] MEDS ORDERED: TRAM100T26 PO (08:39)
== END 2016-08-19 22:05 | disposition home or self-care (01) ==
LOC: ED 17:48
DX: K91.3 Postprocedural intestinal obstruction (principal); G43.909 Migraine, unspecified, not intractable, without status migrainosus; N39.0 Urinary tract infection, site not specified; Z98.890 Other specified postprocedural states; E11.9 Type 2 diabetes mellitus without complications
CPT/HCPCS: 36415; 74022; 74177; 80053; 81003; 81015; 83690; 84703; 85025; 86140; 87088; 96361; 96372; 96374; 96375; 96376; 99284; J1170; J2001; J2405; J2550; J7030; Q9967

== ENCOUNTER 2016-08-20 00:57 | Observation (INO) | payer OTHER ==
[~2016-08-20] VITALS: Ht 165.1 cm; Wt 95.9 kg
[~2016-08-20 00:57] MED LIST changes: +CLN.1T PO
[2016-08-20] MEDS ORDERED: HYDROmorphone 1 MG/ML (DILAUDID) SYRINGE IV ONE (01:10)
[2016-08-20] MEDS ORDERED: METOCLOPRAMIDE 10 MG/2 ML (REGLAN) VIAL IV ONE ×2 (01:10→02:00)
--- NOTE | 2016-08-20 01:20 | NUR ---
MATIAS CA AT BEDSIDE ATTEMPTING IV. PT WITH NO SIGNS OF NAUSEA OR HAVING DRY HEAVES. PT LYING CALMLY ON STRETCHER.
[2016-08-20] MEDS ORDERED: D5 1/2 NS W/KCL 20 MEQ/L 1,000 ML IV SCH (01:26)
[2016-08-20] MEDS ORDERED: HYDROmorphone 1 MG/ML (DILAUDID) SYRINGE IM ONE (01:30)
[2016-08-20] MEDS ORDERED: ONDANSETRON 2 MG/ML (Z0FRAN) 2 ML VIAL IV PRN (01:30)
[2016-08-20] MEDS ORDERED: METOCLOPRAMIDE 10 MG/2 ML (REGLAN) VIAL IM ONE (01:30)
[2016-08-20] MEDS ORDERED: BISACODYL 10 MG SUPP (DULCOLAX) PR PRN (01:30)
--- NOTE | 2016-08-20 01:30 | NUR ---
PT NOW WITH DRY HEAVES BEING HEARD AT NURSES' STATION. STAFF NOT IN ROOM WITH PT.
--- NOTE | 2016-08-20 01:35 | NUR ---
PAT RN - DIRECTOR QUALITY ASSURANCE AT BEDSIDE LOOKING FOR IV SITE. NO DRY HEAVES NOTED WITH STAFF IN THE ROOM.
--- NOTE | 2016-08-20 01:50 | NUR ---
PT CONTINUES WITH NO SYMPTOMS OF ABDOMINAL PAIN OR VOMITING AT THIS TIME. PAT RN REMAINS IN ROOM.
[2016-08-20] MEDS: HYDROmorphone 1 MG/ML (DILAUDID) SYRINGE IV PRN ×5 (01:55→19:53)
--- NOTE | 2016-08-20 02:10 | NUR ---
Patient arrives to 3rd floor via wheelchair accompanied by spouse and ED RN. Admitted to room 305, stands, ambulates to weight chair with steady gait, respirations even, non labored on room air, admission assessment begun. Skin warm, dry and intact, facial cheeks josé, arms with old scarring, abdomen round soft with BS present, hypoactive lower quadrant, answers questions appropriately, drowsy, states she is anxious as "not been treated right in the hospital". Patient reassured.
[2016-08-20 02:21] VITALS: BP 111/71
--- NOTE | 2016-08-20 02:50 | NUR ---
Spouse returns home, patient visits with Tele Med doctor.
[2016-08-20] MEDS ORDERED: LORazepam 2 MG/ML (ATIVAN) 1 ML VIAL IV PRN (03:00)
[2016-08-20] MEDS: LORazepam 1 MG (ATIVAN) TABLET PO SCH ×3 (03:13→21:07)
--- NOTE | 2016-08-20 03:13 | History and Physical (E) ---
History & Physical PCP: Felipe Kenney MD CC vomiting and abdominal pain HPI Please note that the patient was seen via telemedicine with nursing assistance on 08/20/2016. Ms. Foster is a 26yo woman with h/o PCOS, Class 2 obesity BMI 35.2, migraines, and depression who underwent EGD and colonoscopy 5/ 8 AM for a couple months of persistent GI symptoms of pain, diarrhea, and reflux. Those endoscopies per her did not show significant pathology. She post procedure had persistent nausea and vomiting and presented to the ED with antiemetic and IVF given. She went home after after vomiting persistently when drinking only water she came back to the ED with inital tachycardia now improved with IVF, dilaudid IV and Reglan IV. Other VSS with normal BP, and note no blood in emesis. Migraine after all of this her typical migraine with pain 9/10 in head and 7/10 in abdomen. She has passed little gas since the procedure. No other fevers, chills, sob reported. Please note during the first ED visit the patient was given Bactrim for suspected UTI, but that was not a clean catch attempt based on epithelial cells (furthermore only few bact present et al). PMH as above in HPI PSH bladder surgery as well ALLERGIES: Please see list at end of report. HOME MEDICATIONS: Please see list at end of report. Stopped metformin after 07/20/2016 admit. FH no early CAD, mother with migraines SH no tob, heavy etoh. Noted marijauna abuse in the past. ROS 10+ negative aside from in HPI CONSTITUTION: Denies weight loss or gain. Denies fever or chills. HEENT: No change in vision or hearing. No sores in mouth, sore throat. CV: No chest pain, palpitations. PULM: No cough, shortness of breath, difficulty breathing. : No dysuria. No blood in urine. MS: No new muscle or joint aches and pains. NEURO: No numbness or tingling. No weakness. INTEG: No rashes, lesions, or sores. PSYCH: No change in mood or behavior. OBJECTIVE T 100.3 at highest today pulse 90s now 135/96 99% RA RR 20 GEN: Awake, alert, oriented, mod distress with pain HEENT: EOMI, PERRL, moist oral mucosa. CV: RRR S1 S2 normal with no murmur LUNGS: CTA B ABD: Soft, tender with present and nontympanitic bowel sounds. EXTR: No C/C/E. Normal peripheral pulses. INTEG: No rash. NEURO: No focal motor neuro deficit. Weight: 95.9 kg LABS CBC normal, COMP normal except bicarb 20 with CRP 1.3 and HCG negative. INR 0.[address] abd with R ovarian cyst possibly with no perforation/free air. Air fluid levels on Xray imaging noted. ASSESSMENT obs admit for mild SBO PLAN 1. Mild SBO post endoscopies--encourage activity with obs status, IVF, prn Zofran, dulcolax supp if no flatus or recurrent emesis. Underlying GI condition w/u in progress with IBS, other psych overlap likely. 2. Migraine--as above with prn lorazepam and home topamax ok. 3. PCOS and class 2 obesity. Metformin still indicated in the future as tolerated. 4. MDD on lexapro previously, and certainly a good idea. full code. Allergies/Home Medications Allergies: Coded Allergies: adhesive (Verified Allergy, Unknown, SKIN REDNESS, BLISTERS, 08/20/16) ceftriaxone (Verified Allergy, Unknown, 08/20/16) ketorolac (Verified Allergy, Unknown, 08/20/16) latex (Verified Allergy, Unknown, SKIN REDNESS, BLISTERS, 08/20/16) Reported Home Medications Scheduled Clonidine (Catapres) 1 TAB PO BID (Reported) Dicyclomine HCl (Dicyclomine HCl) 20 MG PO Q6H Hyoscyamine Sulfate (Hyoscyamine Sulfate) 0.125 MG SL TID (Reported) Lorazepam (Ativan) 1 MG PO BID (Reported) Metformin HCl (Metformin HCl) 500 MG PO BID WITH MEALS (Reported) Mirtazapine (Remeron) 15 MG PO DAILY (Reported) Norethindrone-E.estradiol-Iron (Blisovi 24 Fe Tablet) 1 TAB PO DAILY (Reported) Pentosan Polysulfate Sodium (Elmiron) 100 MG PO TID (Reported) Quetiapine Fumarate (Seroquel) 150 MG PO DAILY (Reported) Sulfamethoxazole/Trimethoprim (Bactrim DS) 1 TAB PO BID Topiramate (Topiramate) 50 MG PO BID (Reported) Scheduled PRN Albuterol Sulfate (Albuterol Sulfate) 1 VIAL INH QID PRN PRN SHORTNESS OF BREATH Albuterol Sulfate (Ventolin HFA) 2 PUFF IH every 4 hours PRN PRN SHORTNESS OF BREATH Butalb/Acetaminophen/Caffeine (Xujvyv-Lslptxzh-Hsku 50-325-40) 1 TAB PO Q4H PRN PRN HEADACHE (Reported) Discontinued Medications Escitalopram Oxalate (Escitalopram Oxalate) 20 MG PO DAILY (Reported) Discontinued Reason: Update list Ondansetron (Zofran ODT) 4 MG PO Q6H PRN PRN NAUSEA Discontinued Reason: Update list Promethazine HCl (Promethazine HCl) 50 MG PO NEEDED (Reported) Discontinued Reason: Update list Promethazine Hcl (Phenergan) 25 MG WI Q6H PRN PRN NAUSEA Discontinued Reason: Update list Quetiapine Fumarate (Quetiapine Fumarate ER) 150 MG PO DAILY (Reported) Discontinued Reason: Update list Durable Medical Equipment Nebulizer (Compact Compressor Nebulizer) 1 EACH [facility] (DME) Copies to: End of Report . MAKISM NAJERA MD August 20, 2016 03:13
--- NOTE | 2016-08-20 03:15 | NUR ---
Ativan per order. Patient has 50 ml of emesis in bag, dark green liquid. Requests Zofran.
[2016-08-20] MEDS: ONDANSETRON 4 MG (ZOFRAN) ORAL DISSOLVE TAB PO PRN ×3 (03:21→23:59)
--- NOTE | 2016-08-20 03:25 | NUR ---
Prn Zofran po administered per order. Patient asking for more Dilaudid at this time. Advised of time schedule for prn Dilaudid. Given ice pack for back of neck, encouraged to relax and give Ativan and Zofran time to work, will continue to monitor
[2016-08-20 04:32] VITALS: BP 116/70
--- NOTE | 2016-08-20 04:34 | NUR ---
Patient requesting more Dilaudid for extreme pain in abdomen and neck and states ' awakening and gasping for air". Respiratory Therapy called to evaluate for O2 need.
--- NOTE | 2016-08-20 04:49 | NUR ---
O2 sats 92-95%, O2 placed @ 1L/nc, Prn Dilaudid per order, advised of side effects of Dilaudid, warm blanket roll to back of neck. Patient states relief and thanks. Continue to monitor
--- NOTE | 2016-08-20 06:25 | NUR ---
Resting in bed with eyes closed, moans when nurse enters room, IV infusing, O2 @ 1L for comfort respirations even non labored.
--- NOTE | 2016-08-20 07:20 | NUR ---
Patient sleeping in bed upon shift assessment. Arouses easily to verbal stimuli. Reports abdominal pain and neck pain contributed to "resolving migraine". Denies nausea. Also reports significant fatigue. Respirations even and non-labored on roomair. Lung sounds CTAB. HR RRR. Abdomen soft and round. Bowel sounds hypoactive. Updated on plan of care for shift including diet and activity. Call light in reach.
[2016-08-20 07:35] VITALS: BP 102/66
[2016-08-20] MEDS: toPIRamate 25 MG (TOPAMAX) TAB PO SCH ×2 (08:25→21:07)
[2016-08-20] MEDS: FAMOTIDINE 20 MG (PEPCID) TABLET PO SCH ×2 (08:25→21:07)
--- NOTE | 2016-08-20 08:31 | NUR ---
NUTRITION ASSESSMENT Level 1 Patient: Marisa Foster Age/Sex: 26/F Date Screened: 08-20-16 Weight: 210.9#/95.9 kg Height: 65 inches Primary Diagnosis: SBO Diet Order: CL Relevant labs: N/A Food allergies: N Nutrition Assessment Criteria Age over 80: N Body Mass Index (BMI) under 19: N Admission Screening Indicates Risk? 3 points Moderate/High Risk Diagnosis: 6 points TPN or PPN: N NPO or clear liquid diet: Yes Serum Glucose <70 or >180: N/A Hgb A1c >6.7: N/A Total: 9 points Risk Screen: __ Patient at low nutritional risk based on available data; reevaluate in 5-7 days __ Patient at moderate nutritional risk based on available data; reevaluate in 3-5 days _X_ Patient at high nutritional risk; complete Nutrition Assessment within 48 hours of admission.
[2016-08-20] MEDS ORDERED: TRAM100T26 PO (08:39)
[2016-08-20] MEDS ORDERED: TRAZ100T92 PO (08:39)
[2016-08-20] MEDS ORDERED: ESCI10TA PO (08:39)
[2016-08-20] MEDS ORDERED: QUET150T2 PO (08:39)
--- NOTE | 2016-08-20 08:59 | NUR ---
MED REC COMPLETE--current med list obtained from external med history application and discharge list from previous hospital admission (07/17/16).
[2016-08-20] MEDS: NS FLUSH 3 ML DAILY IV SCH (09:00)
[2016-08-20] MEDS ORDERED: NS FLUSH 3 ML PRN IV (09:00)
[2016-08-20] MEDS ORDERED: NON-FORMULARY MEDICATION 1 EA EA (Topiramate 50 MG) PO SCH (09:00)
--- NOTE | 2016-08-20 09:34 | NUR ---
NUTRITION ASSESSMENT Level II Patient: Marisa Foster Age/Sex: 26/F Date Assessed: 08-20-16 ASSESSMENT Pertinent History: Patient admitted with SBO and screened at high nutritional risk secondary to diagnosis and GI history, including 11 visits to the ED since 2016. PMHx includes PCOS, migraines, depression and symptoms of abdominal pain/diarrhea/reflex over the past couple of months. She had an EGD and colonoscopy yesterday but per H&P did not show significant pathology. Pt. reports severe n/v since then with inability to keep anything down. She lives at home with her . Weight history shows 221# in 2016, 212# in July 2016, and 210# yesterday at ED visit. Meds/Nutrition: Pepcid, D5 NS w/ KCl Weight: 210.9#/95.9 kg Height: 65 inches Body Mass Index (BMI): 35.2 [place] Body Weight : 125#/56.8 kg % IBW: 168% GASTROINTESTINAL Appetite: poor, eating 25% Diet Order: CL Unintentional loss of >10 lbs. in 3 months: N Difficult to chew/swallow: N Diabetes: N Relevant Labs: N/A Calculations for Nutritional Assessment Estimated calorie needs: 22-25 kcals/kg = 2,090-2,375 kcals (minus 500 for weight loss) Estimated protein needs: 1.0-1.2 g/kg ABW = 66-79 g./day DIAGNOSIS 1. Nutrition Diagnosis: Inadequate intake related to illness as evidenced by reports of n/v with as-yet undetermined etiology and abdominal pain over the past couple of months. NUTRITIONAL INTERVENTION Goal: Patient will receive adequate nutrition to meet her needs. Plan: Will monitor intake for adequacy and tolerance to diet as advanced. Will also follow with physician re: plan of care and possible etiology for her n/v/pain, as her nutrition intervention may change based on these findings. MONITORING & EVALUATION __ Monitor patients menu selections _X_ Monitor patients food intake per nursing notes _X_ Monitor NPO/clear liquid days __ Monitor lab values __ Monitor I&O __ Other
[2016-08-20] MEDS: CITALOPRAM 10 MG (CELEXA) TABLET PO SCH (09:35)
[2016-08-20] MEDS: MIRTAZAPINE 15 MG (REMERON) TABLET PO SCH ×2 (09:35→21:07)
[2016-08-20] MEDS: metFORMIN 500 MG (GLUCOPHAGE) TABLET PO SCH ×2 (09:35→17:26)
[2016-08-20] MEDS ORDERED: HOME MEDICATION PO SCH (09:35)
[2016-08-20] MEDS ORDERED: ALBUTEROL HFA (VENTOLIN HFA) COMMON CANNISTER IH PRN (09:35)
[2016-08-20] MEDS ORDERED: PROMETHAZINE 25 MG/ML (PHENERGAN) 1 ML VIAL IM PRN (09:50)
[2016-08-20] MEDS ORDERED: IBUPROFEN 600 MG (MOTRIN) TAB PO PRN (09:50)
[2016-08-20] MEDS ORDERED: SUMAtriptan 6 MG/0.5 ML (IMITREX) INJ SC PRN (09:50)
[2016-08-20] MEDS ORDERED: PROMETHAZINE HCL INJ 12.5 MG in SODIUM CHLORIDE 25 ML IV PRN (10:05)
--- NOTE | 2016-08-20 10:21 | Progress Note (E) ---
Progress Note SUBJECTIVE Admitted after midnight. Had EGD and colonoscopy 08/19 for workup of persistent GI issues including abdominal pain, diarrhea, reflux. Reportedly these showed no significant findings. Afterwards she had nausea/vomiting. Came to ED around 1800, complained of this, disorientation, abdominal pain, rectal bleeding. Stated her BP was low and had migraine. Vitals were notable for temp 100.3, HR 129, RR 20, BP 129/86. She was given ondansetron, NS bolus, hydromorphone (1 mg x 3 doses), additional ondansetron IV, promethazine. UA had shown trace LE so she was given bactrim and prescribed this at discharge for UTI. She was discharged home around 2200 but returned to ED 3 hours later with same complaints. Was noted to have dry heaves. Temp improved to 97.8. HR still elevated, 120. BP stable 135/96. She received another round of therapies including NS bolus, hydromorphone, metoclopramide, famotidine, ondansetron, bisacodyl. Labs were not repeated. Since admit, HR has improved, now 90. Since admit, has received 2 additional doses of hydromorphone making this at least 5 mg in < 24 hours. On exam, resting in bed. Stirs readily. Says migraine feels better and stomach cramps are improved. Says she had EGD and colonoscopy by Dr. Alvarez at [facility]. Records requested. During encounter, patient nods off and starts snoring. OBJECTIVE Vital Signs Date Time Temp Pulse Resp B/P Pulse Ox O2 Delivery O2 Flow Rate FiO2 08/20/16 07:35 97.3 90 20 102/66 93 Nasal cannula I & O 08/19/16 08/20/16 Cumulative From/Thru 19:00 07:00 08/20/16 01:10 - 08/20/16 06:28 Intake Total 446 ml 446 ml Output Total 100 ml 100 ml Balance 346 ml 346 ml GEN: Resting in bed. Groggy but stirs to exam. NAD at present. HEENT: EOMI, clear sclerae, somewhat dry oral mucosa. Thick neck. CV: Regular without significant murmur. PULM: Diminished due to body habitus. No R/R/W. ABD: Soft, mildly and diffusely tender without rebound or guarding. Active bowel sounds. EXTR: Trace ankle edema. Normal peripheral pulses. INTEG: Stigmata of neurotic excoriation on arms. No rash. NEURO: No focal motor neuro deficit. Psychomotor slowing. Laboratory Results Past 10Days 08/19/16 19:42: Alanine Aminotransferase (ALT/SGPT) 24L, Albumin 3.7, Albumin/Globulin Ratio 1.156, Alkaline Phosphatase 46, Anion Gap 17.5H, Aspartate Amino Transf (AST/ SGOT) 19, BUN/Creatinine Ratio 13, Basophils # (Auto) 0.0, Basophils (%) (Auto) 0, Blood Urea Nitrogen 13, C-Reactive Protein 1.30H, Calcium Level 8.6L, Calcium /Ionized Calcium Ratio 3.8, Calculated Osmolality 279L, Carbon Dioxide Level 20L , Chloride Level 111H, Creatinine 1.00, Eosinophils # (Auto) 0.1, Eosinophils (% ) (Auto) 1, Estimat Glomerular Filtration Rate 82.4, Estimated GFR (Non- 68.1, Glucose Level 82, Hematocrit 35.70, Hemoglobin 12.2, Lipase 126, Lymphocytes # (Auto) 2.3, Lymphocytes (%) (Auto) 34, Mean Corpuscular Hemoglobin 30.8, Mean Corpuscular Hemoglobin Concent 34.2, Mean Corpuscular Volume 90, Mean Platelet Volume 11.0H, Monocytes # (Auto) 0.6, Monocytes (%) ( Auto) 10, Neutrophils # (Auto) 3.7, Neutrophils (%) (Auto) 55, Platelet Count 227, Potassium Level 3.6, Red Blood Count 3.96L, Red Cell Distribution Width 11.7L, Serum Test, Qualitative Negative, Sodium Level 145, Total Bilirubin 0.2, Total Protein 6.9, White Blood Count 6.66 08/19/16 20:20: Urine Bacteria Rare, Urine Bilirubin Negative, Urine Blood 1+H, Urine Clarity Clear, Urine Collection Type Clean catch, Urine Color Yellow, Urine Glucose (UA ) Negative, Urine Ketones Negative, Urine Leukocyte Esterase TraceH, Urine Microscopic RBC 0-2, Urine Nitrite Negative, Urine Protein Negative, Urine Specific [place] 1.015, Urine Squamous Epithelial Cells 20-50, Urine Urobilinogen 0.2, Urine WBC 5-10H, Urine pH 7.5, Volume Urine Centrifuged 12 ml IMAGING 08/19/16 ACUTE ABD SERIES EXAMINATION: Abdominal radiographs, acute series. DATE : August 19, 2016. CLINICAL INDICATION: A 26-year-old female, nausea, vomiting, and abdominal pain. History of colonoscopy today. COMPARISON: August 10, 2016. COMMENTS: Heart size and mediastinal contours are unremarkable. There is no identified pneumothorax. There is no large pleural effusion. There is no identified focal airspace consolidation. There is no identified free intraperitoneal air. There are gas-filled segments of large bowel with air- fluid levels present. There is no abnormal gas distention of small bowel loops. There is no identified pneumatosis or portal venous gas. IMPRESSION: 1. No free intraperitoneal air. 2. Air-fluid levels within large bowel which is an abnormal but nonspecific appearance. No identified abnormally distended gas-filled segments of small bowel. 08/19/16 CT ABDOMEN/PELVIS W PROCEDURE: CT abdomen and pelvis with contrast. TECHNIQUE: Multiple contiguous axial images were obtained through the abdomen and pelvis after administration of intravenous contrast. INDICATION: Abdominal pain. Colonoscopy today. COMPARISON: 07/17/16. FINDINGS: The lung bases are clear. The liver is normal in size without focal lesions. The gallbladder is unremarkable. There is no biliary ductal dilatation. The spleen is normal. The pancreas, adrenal glands and kidneys are unremarkable. The bowel gas pattern is nonspecific. There is no free air. There is no ascites. There are no focal inflammatory changes. There is a cyst in right adnexa. There is no free pelvic fluid. The osseous structures are unremarkable. The appendix appeared to be filled with barium. IMPRESSION: Cyst in the right adnexa, presumably of ovarian etiology. ASSESSMENT Marisa Foster is a 26 year old female admitted from ED 08/20 where she presented for the second time in < 12 hours with complaint of migraine, OG, nausea/ vomiting, abdominal pain, and rectal bleeding, all in the setting of recent EGD and colonoscopy at a different facility for workup of IBD, IBS. KUB showed some air fluid levels suggestive of ileus but CT was reassuring and there was no evidence of perforation. She has several chronic problems including PTSD, migraine, PCOS. PLAN * Ileus: Mild, on the basis of exam, history, acute abdominal series. No evidence of bowel obstruction on CT. Supportive care, IVF, bowel rest. Pain and nausea control. * Migraine: Per patient report, acute. Does not take abortive medication at home. Has had 5 mg hydromorphone since initial ED presentation. Continue supportive care. If OG persists, trial of sumatriptan. Continue topiramate. * Nausea/Vomiting: Ondansetron, promethazine. * Abdominal Pain: Professes intolerance to ketorolac but is willing to try it. Acetaminophen. Minimize use of hydromorphone as much as possible. * IBS vs. IBD: Obtain records from cutter apprent[facility] hand office. Obtain EGD and colonoscopy reports from [facility]. * F/E/N: CLD, advance as tolerated. IVF. Peripheral IV. * Prophylaxis: SCDs * Code Status: Full * Dispo: Observation. Expect 2 day stay. CHRONIC ISSUES * PCOS: Metformin, OCP. * PTSD: No longer takes trazodone. Had received a new prescription from PCP for clonidine 08/18 but she has not started this. * Depression: Citalopram (sub for escitalopram). * Anxiety: Citalopram. Yared Peter has also prescribed scheduled lorazepam. * Marijuana abuse: Channel Sales Manager cessation. * GERD: Famotidine * Chronic Pain: Hold tramadol. * Insomnia, Night Terrors: Quetiapine (dose adjusted in-hospital because at home she takes 150 mg XR but only immediate release is available in hospital.) * Asthma? Not acutely exacerbated. Albuterol PRN. LALA WITT MD August 20, 2016 09:53
[2016-08-20] MEDS: KETOROLAC 30 MG/ML (TORADOL) 1 ML VIAL IV PRN ×2 (10:58→18:39)
--- NOTE | 2016-08-20 11:13 | NUR ---
Patient reports 5/10 pain in abdomen, back of neck, and bilateral ankles. Requests PRN Toradol. Toradol allergy noted and patient discusses reaction. Patient reports "stomach cramping" occurred once in the past. States "I am willing to try it". Does not want to try PRN Dilaudid due to "bowel slowing". Agrees to report cramping if it arises. Call light in reach.
[2016-08-20 11:22] VITALS: BP 105/68
[2016-08-20] MEDS: HYOSCYAMINE 0.125 MG (LEVSIN) TABLET PO SCH ×2 (11:40→17:25)
--- NOTE | 2016-08-20 12:00 | NUR ---
PRN Dilaudid provided for c/o abdominal pain rated 8/10 on pain scale. Reports no relief from Toradol. States "I had mild cramping from that but now feel nausea". PRN Zofran also provided. Resting with eyes shut. Call light in reach.
--- NOTE | 2016-08-20 13:12 | NUR ---
Visited with Pt. regarding transportation at discharge. Pt. stated her mother and father in law work until 16:00 or 17:00 tomorrow. Pt. asked about taxi's that travel out of town since Pt. lives in [place]. SW contacted [employer] a [employer] and [employer] and they both would charge $15 to take her to [place]. Pt. stated she could possibly pay for a taxi if she doesn't come up with another plan. SW offered to help pay for part of the taxi if she is not able to pay for all of it.
[2016-08-20] MEDS: NS FLUSH 10 ML PRN IV ×4 (15:37→22:33)
[2016-08-20 15:43] VITALS: BP 116/75
--- NOTE | 2016-08-20 15:52 | NUR ---
PRN Dilaudid for c/o abdominal pain rated 8/10 on pain scale. Agrees to ambulate in [place] after medication takes effect. Call light in reach.
--- NOTE | 2016-08-20 18:27 | NUR ---
Patient rests in bed for long intervals throughout day shift. Reports abdominal pain and nausea persist despite PRN medications. Requests diet advancement and states "I might as well go home if you are going to starve me". Patient educated at length on ileus and symptoms. Dr. Gaitan notified. Diet advanced to full liquid and patient informed to attempt with caution. C/o bleeding per rectum but then states she has started her period. Ambulates two full laps in [place] on one occasion this afternoon. Call light in reach.
[2016-08-20] MEDS ORDERED: QUEtiapine 100 MG (SEROquel) TAB IMMEDIATE RELEASE PO SCH (19:00)
--- NOTE | 2016-08-20 19:00 | NUR ---
Patient up in halls, walks 1 lap with . No needs at this time, will continue to monitor.
--- NOTE | 2016-08-20 20:05 | NUR ---
Patient resting in bed, requests o2 on for sleep. States that RN during night previous night had placed her on it and it allowed her to relax some. 1L placed per NC at this time. Patient encouraged to walk again tonight. Will continue to monitor.
--- NOTE | 2016-08-20 20:11 | NUR ---
Pt found in hospital bed along with male microsoft net developer, she was on 1 l/min NC, SPO2 97%. I titrated the O2 to RA and explained that there was no indication, nor was there an order for O2 from the Dr. She became very upset, stating she needed it for her sleep apnea and requested to talk to the Dr. I also explained that oxygen is a drug and cannot be administered without a Dr's order. She requested that I not come back in her room without nursing supervision. Dr Gaitan informed via text.
[2016-08-20 20:17] VITALS: BP 105/62
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
[2016-08-20] MEDS ORDERED: QUEtiapine 50 MG (SEROquel) TAB IMMEDIATE RELEASE PO SCH (21:00)
[2016-08-20] MEDS ORDERED: cloNIDine 0.1 MG (CATAPRES) TAB PO SCH (21:00)
[2016-08-20] MEDS ORDERED: QUEtiapine 25 MG (SEROquel) TAB IMMEDIATE RELEASE PO SCH (21:00)
[2016-08-20] MEDS ORDERED: traZODone 100 MG (DESYREL) TABLET PO SCH (21:00)
[2016-08-20] MEDS ORDERED: ZOLPIDEM 5 MG (AMBIEN) TAB PO PRN (21:35)
[2016-08-20] MEDS ORDERED: HYDROmorphone 1 MG/ML (DILAUDID) SYRINGE IV PRN (21:35)
--- NOTE | 2016-08-20 22:15 | Progress Note (E) ---
Progress Note Came in from home to visit with patient who has voiced frustration with RN jovanny, confused about her medical plan and stating she doesn't remember any physician visiting her today. After seeing me and my computer, she now remembers that we did meet this AM. Calm, pleasant, and interactive. At present , speaking clearly in full sentences. Demonstrates that she is oriented to person, place, time, and now situation. She voiced appreciation for the visit. Says that in her room jovanny she was walking around in room with , lost her balance, fell to her knee. Was dizzy at the time. Denied feeling like she was going to pass out. Fall was not witnessed by staff. Also voices concern of not having oxygen. States she wakes up gasping at times, says she can't lay on her side in the hospital bed because her sides are hurting. She acknowledges she has never had a sleep study. She acknowledges she doesn't have oxygen at home. Says she has increased anxiety being away from home and increased anxiety coping with her abdominal issues, recent EGD/colonoscopy. Reiterated all findings and plan of care, walking her through today's progress note. Reiterated rationale for current prescribed therapies. She voiced understanding and appreciation. Asked what would help her to be able to relax tonight and to get some rest. She asks about IV hydromorphone and lorazepam. Discussed concerns that she is having adverse effects and why it is not recommended that these medications be further escalated. Reminded her that she is already receiving lorazepam and hydromorphone and that some of her disorientation and dizziness tonight is likely adverse effects from these medications. Asked how she plans to cope at home (when these medicines won't be available) she says she will feel more relaxed when she is back in her own, comfortable home environment. She is hopeful for at least some additional relief for jovanny. Had obtained records from her student affairs dean office and even received biopsy results from her scopes. Results as noted below. I shared these results with her, explained the terminology. Explained that we would defer to Dr. Alvarez for further management recommendations. Discussed possibility of calling his office in AM to see if he wants to start any therapy before she discharges from this facility. For jovanny, discussed alternative plan of trying zolpidem to help her sleep. Permit oxygen which she also feels will help her to relax. Did not increase lorazepam. Increased hydromorphone to Q3H. Plan to check labs and KUB in AM. Summarized this plan and she voiced understanding and appreciation. LALA WITT MD August 20, 2016 22:15
--- NOTE | 2016-08-20 22:20 | NUR ---
Patient placed on 1L oxygen/Nasal Cannula per order. RT notified. Will continue to monitor.
[2016-08-20 23:36] LABS: MEAN CORPUSCULAR HEMOGLOBIN 30.8 PG (26.0-34.0); MEAN CORPUSCULAR HGB CONC 33.9 g/dL (31.0-37.0); MEAN CORPUSCULAR VOLUME 91 FL (80-100); MEAN PLATELET VOLUME 10.7 FL (6.0-9.5); PLATELET COUNT 230 10^3uL (150-450); WHITE BLOOD COUNT 5.03 10^3uL (4.0-11.0)
[2016-08-20 23:44] LABS: ALBUMIN 3.8 g/dL (3.4-5.0); ANION GAP 13.5 MEQ/L (3-15)
[2016-08-20] MEDS: ACETAMINOPHEN 325 MG TAB (TYLENOL) PO PRN (23:59)
--- NOTE | 2016-08-20 23:59 | NUR ---
Patient requests nausea medication and toradol at this time for "beginning of migraine". Informed patient that it isn't time for toradol yet, offered tylenol. Patient agrees to this. Zofran and Tylenol given. Will continue to monitor.
[2016-08-21 00:07] VITALS: BP 107/62
[2016-08-21 00:52] LABS: EOSINOPHILS % 1 % (0-4); LYMPHOCYTES # 2.7 #; MONOCYTES # 0.3 #; MONOCYTES % 5 % (3-11); RBC MORPH NORMAL (NORMAL); SEGMENTED NEUTROPHILS % 40 % (51-67); TOTAL CELLS COUNTED 100
[2016-08-21] MEDS: KETOROLAC 30 MG/ML (TORADOL) 1 ML VIAL IV PRN ×3 (00:54→17:49)
--- NOTE | 2016-08-21 00:54 | NUR ---
Patient states that migraine is better but she is still having abdominal pain and would like toradol. Toradol given per request, see MAR. Will continue to monitor.
[2016-08-21 04:25] VITALS: BP 101/73
[2016-08-21] MEDS: HYOSCYAMINE 0.125 MG (LEVSIN) TABLET PO SCH ×2 (06:51→11:40)
[2016-08-21 08:00] VITALS: BP 116/77
--- NOTE | 2016-08-21 09:28 | Diagnostic Imaging Report ---
INDICATION: Abdominal distention Supine and upright abdominal images show a normal gas pattern. There are no pathologic masses or calcifications. There is no intraperitoneal free air. IMPRESSION: There are no abnormalities in the abdomen. Dictated by: Dictated on workstation # [id number]
[2016-08-21] MEDS: FAMOTIDINE 20 MG (PEPCID) TABLET PO SCH (11:40)
[2016-08-21] MEDS: toPIRamate 25 MG (TOPAMAX) TAB PO SCH (11:40)
--- NOTE | 2016-08-21 11:40 | NUR ---
Pt has been sleeping soundly since 729 this AM- Dr. Gaitan ok with not waking patient for meds and assessment. Asks for Toradol for bladder pain 12/22- Toradol given. Dr. Gaitan to room. AM meds given- refused Metformin and Celexa. PRN bowel regimen given and educated on need for BM sample. Also, new hat placed in toilet for UA sample. Pt pleasant and thankful. Calm with this nurse and
[2016-08-21] MEDS: LORazepam 1 MG (ATIVAN) TABLET PO SCH (11:41)
[2016-08-21] MEDS: NS FLUSH 3 ML DAILY IV SCH (11:44)
[2016-08-21] MEDS: CITALOPRAM 10 MG (CELEXA) TABLET PO SCH (11:44)
[2016-08-21] MEDS: metFORMIN 500 MG (GLUCOPHAGE) TABLET PO SCH (11:45)
[2016-08-21] MEDS ORDERED: POLYETHYLENE GLYCOL 17 GM (MIRALAX) PACKET PO PRN (11:50)
--- NOTE | 2016-08-21 11:55 | Progress Note (E) ---
Progress Note SUBJECTIVE Overnight issues as addressed in previous progress note. Palliative measures as outlined were helpful. Vitals stable. WBC was stable at 5.03 though she had a lymphocyte predominance of 54%. CMP stable. CRP 1.10. Amylase and lipase were not elevated. Abdominal film this AM shows resolution of ileus but she has some stool in the right colon. Discussed with Dr. Alvarez by phone: He plans to review colon biopsy with the pathologist. He would like to check stool for calprotectin but this can be collected/analyzed as outpatient. Updated patient on all findings, plan of care. Checked on AM rounds and she was sleeping soundly. Later in the morning, more awake and interactive. Complaining of bladder spasms. Discussed need for new UA to check if UTI is present. Discussed treating constipation and need for stool sample. OBJECTIVE Vital Signs Date Time Temp Pulse Resp B/P Pulse Ox O2 Delivery O2 Flow Rate FiO2 08/21/16 08:00 97.4 76 18 116/77 96 Room air 08/20/16 15:43 0.00 I & O 08/20/16 08/21/16 Cumulative From/Thru 19:00 07:00 08/20/16 01:10 - 08/21/16 06:36 Intake Total 1456 ml 1599 ml 3501 ml Output Total 1900 ml 1500 ml 3500 ml Balance -444 ml 99 ml 1 ml GEN: Resting in bed. Alert and interactive. Feeling lower abdominal spasms. HEENT: EOMI, clear sclerae, somewhat dry oral mucosa. CV: Regular without significant murmur. PULM: Diminished due to body habitus. No R/R/W. ABD: Soft, mildly and diffusely tender without rebound or guarding. Active bowel sounds. EXTR: Trace ankle edema. Normal peripheral pulses. INTEG: Stigmata of neurotic excoriation on arms. No rash. NEURO: No focal motor neuro deficit. Psychomotor slowing. Lab-Past 14 Days, 35 Results 08/20/16 23:20: Alanine Aminotransferase (ALT/SGPT) 24L, Albumin 3.8, Albumin/Globulin Ratio 1.187, Alkaline Phosphatase 44, Amylase Level 87, Anion Gap 13.5, Aspartate Amino Transf (AST/SGOT) 21, BUN/Creatinine Ratio 6L, Basophils # (Auto) , Basophils (%) (Auto) , Blood Morphology Comment Normal, Blood Urea Nitrogen 6#L , C-Reactive Protein 1.10H, Calcium Level 9.1, Calcium/Ionized Calcium Ratio 4.0 , Calculated Osmolality 273L, Carbon Dioxide Level 22, Chloride Level 111H, Creatinine 0.94, Differential Total Cells Counted 100, Eosinophils # 0.1, Eosinophils # (Auto) , Eosinophils % (Manual) 1, Eosinophils (%) (Auto) , Estimat Glomerular Filtration Rate 88.5, Estimated GFR (Non- 73.2, Glucose Level 93, Hematocrit 35.40, Hemoglobin 12.0, Lipase 110, Lymphocytes # 2.7, Lymphocytes # (Auto) , Lymphocytes % (Manual) 54H, Lymphocytes (%) (Auto) , Mean Corpuscular Hemoglobin 30.8, Mean Corpuscular Hemoglobin Concent 33.9, Mean Corpuscular Volume 91, Mean Platelet Volume 10.7H , Monocytes # 0.3, Monocytes # (Auto) , Monocytes % (Manual) 5, Monocytes (%) ( Auto) , Neutrophils # 2.0, Neutrophils # (Auto) , Neutrophils (%) (Auto) , Platelet Count 230, Potassium Level 3.8, Red Blood Count 3.89L, Red Cell Distribution Width 11.7L, Segmented Neutrophils % 40L, Sodium Level 143, Total Bilirubin 0.4#, Total Protein 7.0, White Blood Count 5.03 PATHOLOGY (from EGD and colonoscopy 08/19/16 at [facility]): 08/19 Duodenum biopsy Within normal limits. 08/19 Ascending colon biopsy Mild focal, nonspecific acute colitis. 08/19 Transverse colon biopsy Within normal limits 08/19 Descending colon biopsy Nonspecific acute colitis. IMAGING 08/21/16 KUB: Radiologist interpretation pending. No evidence of ileus. Some stool in right right colon. 08/19/16 ACUTE ABD SERIES EXAMINATION: Abdominal radiographs, acute series. DATE : August 19, 2016. CLINICAL INDICATION: A 26-year-old female, nausea, vomiting, and abdominal pain. History of colonoscopy today. COMPARISON: August 10, 2016. COMMENTS: Heart size and mediastinal contours are unremarkable. There is no identified pneumothorax. There is no large pleural effusion. There is no identified focal airspace consolidation. There is no identified free intraperitoneal air. There are gas-filled segments of large bowel with air- fluid levels present. There is no abnormal gas distention of small bowel loops. There is no identified pneumatosis or portal venous gas. IMPRESSION: 1. No free intraperitoneal air. 2. Air-fluid levels within large bowel which is an abnormal but nonspecific appearance. No identified abnormally distended gas-filled segments of small bowel. 08/19/16 CT ABDOMEN/PELVIS W PROCEDURE: CT abdomen and pelvis with contrast. TECHNIQUE: Multiple contiguous axial images were obtained through the abdomen and pelvis after administration of intravenous contrast. INDICATION: Abdominal pain. Colonoscopy today. COMPARISON: 07/17/16. FINDINGS: The lung bases are clear. The liver is normal in size without focal lesions. The gallbladder is unremarkable. There is no biliary ductal dilatation. The spleen is normal. The pancreas, adrenal glands and kidneys are unremarkable. The bowel gas pattern is nonspecific. There is no free air. There is no ascites. There are no focal inflammatory changes. There is a cyst in right adnexa. There is no free pelvic fluid. The osseous structures are unremarkable. The appendix appeared to be filled with barium. IMPRESSION: Cyst in the right adnexa, presumably of ovarian etiology. ASSESSMENT Marisa Foster is a 26 year old female admitted from ED 08/20 where she presented for the second time in < 12 hours with complaint of migraine, OG, nausea/ vomiting, abdominal pain, and rectal bleeding, all in the setting of recent EGD and colonoscopy at [facility] 08/19 for workup of IBD vs. IBS. KUB on admit showed some air fluid levels suggestive of ileus but CT was reassuring and there was no evidence of perforation. She had some scant rectal bleeding attributed to biopsy. She has several chronic problems including PTSD, migraine, PCOS. PLAN * Ileus: Resolved. Mild on admit, on the basis of exam, history, acute abdominal series. No evidence of bowel obstruction on CT. Supportive care, IVF, bowel rest. Pain and nausea control. * Colitis NOS: Reviewed records from die engraver office. Obtained EGD and colonoscopy reports from [facility]. Case discussed with Dr. Alvarez 08/21. He requests check fo stool calprotectin. Already has follow-up scheduled 08/28. Non-specific colitis on biopsy, found in ascending and descending colon. Per die engraver request, check stool calprotectin. * Bladder Spasms: New complaint 08/21. Has history of interstitial cystitis. Check new UA. * Constipation: Noted on abdominal imaging. Bowel regimen. * Abdominal Pain: Professed intolerance to ketorolac but was willing to try it. Did seem to help some with pain and OG without significant adverse effect. In light of possible IBD, defer further NSAID for now at discharge. Acetaminophen. * Migraine: Resolving. Per patient report on admit, acute. Does not take abortive medication at home. Continued supportive care. Got hydromorphone initially on two ED visits and on admit but de-escalated as much as possible. OG did improve. Had considered sumatriptan but this was not needed. Continued topiramate. * Nausea/Vomiting: Improved. Ondansetron, promethazine in hospital. At discharge , offered ondansetron. * F/E/N: CLD, advanced as tolerated. IVF. Peripheral IV. * Prophylaxis: SCDs * Code Status: Full * Dispo: Observation. Expect 2 day stay. Possible D/C later in day pending UA, BM. May need to delay discharge an additional. CHRONIC ISSUES * PCOS: Says she no longre takes metformin. Continued OCP. * PTSD: No longer takes trazodone. Had received a new prescription from PCP for clonidine 08/18 but she has not started this. * Depression: Citalopram (sub for escitalopram) but she refused saying she is no longer taking this. * Anxiety: Citalopram. Yared Peter has also prescribed scheduled lorazepam. * Marijuana abuse: Radiocommunications Technician cessation. * GERD: Famotidine * Chronic Pain: Hold tramadol. * Insomnia, Night Terrors: Quetiapine (dose adjusted in-hospital because at home she takes 150 mg XR but only immediate release is available in hospital.) * Asthma? Not acutely exacerbated. Albuterol PRN. LALA WITT MD August 21, 2016 08:42
[2016-08-21 12:00] VITALS: BP 122/90
[2016-08-21] MEDS: DOCUSATE SODIUM 100 MG (COLACE) CAP PO PRN ×2 (12:04→15:18)
[2016-08-21] MEDS: MAGNESIUM HYDROXIDE 80MG/ML (MILK OF MAGNESIA) 30 ML UDC PO PRN ×2 (12:04→15:18)
[2016-08-21 14:06] LABS: BILIRUBIN,URINE Negative (Negative); COLOR,URINE Yellow; GLUCOSE, URINE (UA) Negative (Negative); LEUKOCYTE ESTERASE ,URINE Negative (Negative); UROBILINOGEN,URINE 0.2 mg/dL (0.2-1.0)
--- NOTE | 2016-08-21 14:11 | NUR ---
UA sent to lab. Pt c/o cramping from bowel regimen. Encouraged patient to ambulate halls.
[2016-08-21 14:15] LABS: CLARITY,URINE Slightly Cloudy; RBC,URINE 0-2 /HPF; URINE CENTRIFUGED VOLUME 12 mL
[2016-08-21 16:00] VITALS: BP 106/71
[2016-08-21] MEDS: ACETAMINOPHEN 325 MG TAB (TYLENOL) PO PRN (16:20)
--- NOTE | 2016-08-21 16:22 | NUR ---
Tylenol 650mg PO given for c/o bladder cramping pain. she is resting in bed. Sprite and water provided and agree to walk halls with this nurse at 6pm.
--- NOTE | 2016-08-21 17:53 | NUR ---
Toradol 30mg IV given for c/o abd pain rated 6/10. Dr. Gaitan in room- patient expresses desire to go home tonight when her gets off of work.
[2016-08-21] MEDS ORDERED: ONDAN4ODT PO (18:04)
[2016-08-21] MEDS ORDERED: MAGN400O7 PO (18:04)
[2016-08-21] MEDS ORDERED: AC325T PO (18:04)
[2016-08-21] MEDS ORDERED: DOCU100C8 PO (18:04)
[2016-08-21] MEDS ORDERED: HYDR-3702 PO (18:04)
[2016-08-21] MEDS ORDERED: POLY17PO2 PO (18:04)
--- NOTE | 2016-08-21 18:05 | Discharge Instructions (E) ---
Discharge Instructions Instructions * You were evaluated and treated for abdominal pain that occurred one day after you had an EGD and colonoscopy in [place]. A CT scan of your abdomen showed no acute abnormalities or complications from that procedure. You did have evidence of mild ileus as well as constipation. Ileus improved but you still need to have regular bowel movements. * The biopsy result from your coloscopy showed some areas of non-specific inflammation (colitis.) Dr. Alvarez would like your stool be tested for calprotectin, a marker of inflammatory bowel disease. You will be sent home with a stool collection container. Keep your sample refrigerated. Bring it to the [facility] lab [facility] after collecting the sample. Be sure to bring your lab order form with you. * You had some recurrent abdominal spasms. For pain, it is OK to take acetaminophen at home. A short course of hydrocodone/acetaminophen ([place]) has been prescribed in case of worse breakthrough pain. Remember not take this at the same time as acetaminophen because Cameron has acetaminophen in it. * For constipation, it is OK to take [id number] medications to help you have regular bowel movements. Review the provided handouts for details. * In case of nausea, a short course of ondansetron has been prescribed. Review the provided handout for details. Activity Instructions As tolerated. Doctor's Appointment Follow-up with your primary are doctor in 3-5 days. Follow-up with Dr. Alvarez as scheduled. Be sure to collect your stool sample for testing. Discharge Diet: Regular BLOUSTINE,LALA Mcmullen MD August 21, 2016 18:01
--- NOTE | 2016-08-21 18:32 | NUR ---
Discharge instructions reviewed with patient, copies signed and given to patient. Script for [employer] given to patient. Blue stool specimen tub, lid and bag provided for stool sample and order for stool given to patient. Explained to patient the process to collect stool and refrigerate until she can bring to lab. 24g IV dc'd from [facility]- tip intact, site without redness/swelling.
--- NOTE | 2016-08-21 18:35 | Discharge Summary (E) ---
Discharge Summary (E) Admit Date/Time August 20, 2016 at 01:27 Discharge Date/Time August 21, 2016 Admitting Provider Jomar Benjamin MD Primary Care Provider Felipe Kenney MD Attending Provider Jomar Benjamin MD, Michael MD Consulting Provider History and Present Illness Marisa Foster is a 26 year old female admitted from ED 08/20 where she presented for the second time in < 12 hours with complaint of migraine, OG, nausea/ vomiting, abdominal pain, and rectal bleeding, all in the setting of recent EGD and colonoscopy at [facility] 08/19 for workup of IBD vs. IBS. KUB on admit showed some air fluid levels suggestive of ileus but CT was reassuring and there was no evidence of perforation. She had some scant rectal bleeding attributed to biopsy. She has several chronic problems including PTSD, migraine, PCOS. Ileus improved with bowel rest. She had some constipation on follow-up KUB and though bowel regimen was given she hadn't yet had a BM before discharge. Biopsy results showed non-specific colitis. Discussed with her bender helper who requested stool calprotectin. Patient was sent home with stool collection basin and order for this test outpatient. Nurseryman Assistant intends to review slides with pathologist. Follow-up is already arranged for patient next week. At the time of discharge she was experiencing some bladder spasms. Somewhat chronic. UA did not suggest UTI. She felt this would improve at home once she restarts pentosan polysulfate (not on formulary here.) She felt otherwise she would be able to manage her symptoms at home and was thus discharged with short course of hydrocodone/acetaminophen and ondansetron. Full details of her hospitalization as follows: Hospital Course and Treatment * Ileus: Resolved. Mild on admit, on the basis of exam, history, acute abdominal series. No evidence of bowel obstruction on CT. Supportive care, IVF, bowel rest. Pain and nausea control. * Colitis NOS: Reviewed records from bender helper office. Obtained EGD and colonoscopy reports from [facility]. Case discussed with Dr. Alvarez 08/21. Already has follow-up scheduled 08/28. Non-specific colitis on biopsy, found in ascending and descending colon. Per bender helper request , check stool calprotectin. * Bladder Spasms: New complaint 08/21. Has history of interstitial cystitis. New UA not suggestive of UTI. At discharge, resume pentosan polysulfate. * Constipation: Noted on abdominal imaging. Bowel regimen. Encouraged use of this at discharge. * Abdominal Pain: Professed intolerance to ketorolac but was willing to try it. Did seem to help some with pain and OG without significant adverse effect. In light of possible IBD, defer further NSAID for now at discharge. Acetaminophen. Short course of hydrocodone/acetaminophen at discharge. * Migraine: Resolved. Per patient report on admit, acute. Does not take abortive medication at home. Continued supportive care. Got hydromorphone initially on two ED visits and on admit but de-escalated as much as possible. OG did improve. Had considered sumatriptan but this was not needed. Continued topiramate. * Nausea/Vomiting: Improved. Ondansetron, promethazine in hospital. At discharge , offered ondansetron. * F/E/N: CLD, advanced as tolerated. IVF. Peripheral IV. * Prophylaxis: SCDs * Code Status: Full * Dispo: Observation. Discharged home in stable condition. CHRONIC ISSUES * PCOS: Says she no longre takes metformin. Continued OCP. * PTSD: No longer takes trazodone. Had received a new prescription from PCP for clonidine 08/18 but she has not started this. * Depression: Citalopram (sub for escitalopram) but she refused saying she is no longer taking this. * Anxiety: Citalopram. Yared Peter has also prescribed scheduled lorazepam. * Marijuana abuse: Recooperer cessation. * GERD: Famotidine * Chronic Pain: Hold tramadol. * Insomnia, Night Terrors: Quetiapine (dose adjusted in-hospital because at home she takes 150 mg XR but only immediate release is available in hospital.) * Asthma? Not acutely exacerbated. Albuterol PRN. Discharge Physicial Exam General Vital Signs Date Time Temp Pulse Resp B/P Pulse Ox O2 Delivery O2 Flow Rate FiO2 08/21/16 16:00 96.6 98 20 106/71 95 Room air 08/20/16 15:43 0.00 GEN: Resting in bed. Alert and interactive. Feeling lower abdominal spasms. HEENT: EOMI, clear sclerae, somewhat dry oral mucosa. CV: Regular without significant murmur. PULM: Diminished due to body habitus. No R/R/W. ABD: Soft, mildly and diffusely tender without rebound or guarding. Active bowel sounds. EXTR: Trace ankle edema. Normal peripheral pulses. INTEG: Stigmata of neurotic excoriation on arms. No rash. NEURO: No focal motor neuro deficit. Psychomotor slowing. Laboratory/Radiology Data Laboratory Results-14 Days 08/20/16 23:20: Alanine Aminotransferase (ALT/SGPT) 24L, Albumin 3.8, Albumin/Globulin Ratio 1.187, Alkaline Phosphatase 44, Amylase Level 87, Anion Gap 13.5, Aspartate Amino Transf (AST/SGOT) 21, BUN/Creatinine Ratio 6L, Basophils # (Auto) , Basophils (%) (Auto) , Blood Morphology Comment Normal, Blood Urea Nitrogen 6#L , C-Reactive Protein 1.10H, Calcium Level 9.1, Calcium/Ionized Calcium Ratio 4.0 , Calculated Osmolality 273L, Carbon Dioxide Level 22, Chloride Level 111H, Creatinine 0.94, Differential Total Cells Counted 100, Eosinophils # 0.1, Eosinophils # (Auto) , Eosinophils % (Manual) 1, Eosinophils (%) (Auto) , Estimat Glomerular Filtration Rate 88.5, Estimated GFR (Non- 73.2, Glucose Level 93, Hematocrit 35.40, Hemoglobin 12.0, Lipase 110, Lymphocytes # 2.7, Lymphocytes # (Auto) , Lymphocytes % (Manual) 54H, Lymphocytes (%) (Auto) , Mean Corpuscular Hemoglobin 30.8, Mean Corpuscular Hemoglobin Concent 33.9, Mean Corpuscular Volume 91, Mean Platelet Volume 10.7H , Monocytes # 0.3, Monocytes # (Auto) , Monocytes % (Manual) 5, Monocytes (%) ( Auto) , Neutrophils # 2.0, Neutrophils # (Auto) , Neutrophils (%) (Auto) , Platelet Count 230, Potassium Level 3.8, Red Blood Count 3.89L, Red Cell Distribution Width 11.7L, Segmented Neutrophils % 40L, Sodium Level 143, Total Bilirubin 0.4#, Total Protein 7.0, White Blood Count 5.03 08/21/16 13:56: Urine Bacteria 1+, Urine Bilirubin Negative, Urine Blood Trace-lysedH, Urine Clarity Slightly cloudy, Urine Collection Type Clean catch, Urine Color Yellow, Urine Glucose (UA) Negative, Urine Ketones Negative, Urine Leukocyte Esterase Negative, Urine Microscopic RBC 0-2, Urine Mucus 1+, Urine Nitrite Negative, Urine Protein Negative, Urine Specific [place] 1.015, Urine Squamous Epithelial Cells 20-50, Urine Urobilinogen 0.2, Urine WBC None seen, Urine pH 8.0, Volume Urine Centrifuged 12 ml PATHOLOGY (from EGD and colonoscopy 08/19/16 at [facility]): 08/19 Duodenum biopsy Within normal limits. 08/19 Ascending colon biopsy Mild focal, nonspecific acute colitis. 08/19 Transverse colon biopsy Within normal limits 08/19 Descending colon biopsy Nonspecific acute colitis. IMAGING 08/21/16 ABDOMEN, FLAT UPRIGHT DECUB INDICATION: Abdominal distention Supine and upright abdominal images show a normal gas pattern. There are no pathologic masses or calcifications. There is no intraperitoneal free air. IMPRESSION: There are no abnormalities in the abdomen. 08/19/16 ACUTE ABD SERIES EXAMINATION: Abdominal radiographs, acute series. DATE : August 19, 2016. CLINICAL INDICATION: A 26-year-old female, nausea, vomiting, and abdominal pain. History of colonoscopy today. COMPARISON: August 10, 2016. COMMENTS: Heart size and mediastinal contours are unremarkable. There is no identified pneumothorax. There is no large pleural effusion. There is no identified focal airspace consolidation. There is no identified free intraperitoneal air. There are gas-filled segments of large bowel with air- fluid levels present. There is no abnormal gas distention of small bowel loops. There is no identified pneumatosis or portal venous gas. IMPRESSION: 1. No free intraperitoneal air. 2. Air-fluid levels within large bowel which is an abnormal but nonspecific appearance. No identified abnormally distended gas-filled segments of small bowel. 08/19/16 CT ABDOMEN/PELVIS W PROCEDURE: CT abdomen and pelvis with contrast. TECHNIQUE: Multiple contiguous axial images were obtained through the abdomen and pelvis after administration of intravenous contrast. INDICATION: Abdominal pain. Colonoscopy today. COMPARISON: 07/17/16. FINDINGS: The lung bases are clear. The liver is normal in size without focal lesions. The gallbladder is unremarkable. There is no biliary ductal dilatation. The spleen is normal. The pancreas, adrenal glands and kidneys are unremarkable. The bowel gas pattern is nonspecific. There is no free air. There is no ascites. There are no focal inflammatory changes. There is a cyst in right adnexa. There is no free pelvic fluid. The osseous structures are unremarkable. The appendix appeared to be filled with barium. IMPRESSION: Cyst in the right adnexa, presumably of ovarian etiology. Discharge Disposition Discharged home. Instructions * You were evaluated and treated for abdominal pain that occurred one day after you had an EGD and colonoscopy in [place]. A CT scan of your abdomen showed no acute abnormalities or complications from that procedure. You did have evidence of mild ileus as well as constipation. Ileus improved but you still need to have regular bowel movements. * The biopsy result from your coloscopy showed some areas of non-specific inflammation (colitis.) Dr. Alvarez would like your stool be tested for calprotectin, a marker of inflammatory bowel disease. You will be sent home with a stool collection container. Keep your sample refrigerated. Bring it to the [facility] lab [facility] after collecting the sample. Be sure to bring your lab order form with you. * You had some recurrent abdominal spasms. For pain, it is OK to take acetaminophen at home. A short course of hydrocodone/acetaminophen ([place]) has been prescribed in case of worse breakthrough pain. Remember not take this at the same time as acetaminophen because [place] has acetaminophen in it. * For constipation, it is OK to take [id number] medications to help you have regular bowel movements. Review the provided handouts for details. * In case of nausea, a short course of ondansetron has been prescribed. Review the provided handout for details. Activity Instructions As tolerated. Appointments Follow-up with your primary are doctor in 3-5 days. Follow-up with Dr. Alvarez as scheduled. Be sure to collect your stool sample for testing. Discharge Diet: Regular Discharge Medications New Medications: Hydrocodone/Acetaminophen ([place] 5mg/325mg) 1 Each Tablet 1 TAB PO Q6H PRN PAIN #10 Ref 0 TAB Acetaminophen (Acetaminophen) 325 Mg Tablet 650 MG PO Q6H PRN PAIN #0 Ref 0 TAB Docusate Sodium (Docusate Sodium) 100 Mg Capsule 100 MG PO BID PRN CONSTIPATION #0 Ref 0 CAP Magnesium Hydroxide (Milk of Magnesia 400mg/5ml) 400 Mg/5 Ml Oral.susp 30 ML PO QID PRN CONSTIPATION #0 Ref 0 ML Ondansetron HCl (Zofran ODT) 4 Mg Tab.rapdis 4 MG PO Q6HR PRN NAUSEA #15 Ref 0 TAB Polyethylene Glycol 3350 (Miralax) 17 Gm Powd.pack 17 GM PO DAILY PRN CONSTIPATION #0 Ref 0 PACKET Continued Medications: Albuterol Sulfate (Albuterol Sulfate) 2.5 Mg/3 Ml Vial.neb 1 VIAL INH QID PRN SHORTNESS OF BREATH #30 Ref 1 VIAL Albuterol Sulfate (Ventolin HFA) 90 Mcg/1 Puff Hfa.aer.ad 2 PUFF IH every 4 hours PRN SHORTNESS OF BREATH #1 Ref 1 INHALER Butalb/Acetaminophen/Caffeine (Yxcprk-Ivfqjuns-Khei 50-325-40) 1 Each Tablet 1 TAB PO Q4H PRN HEADACHE #30 Escitalopram Oxalate (Lexapro) 10 Mg Tablet 10 MG PO DAILY #30 Hyoscyamine Sulfate (Hyoscyamine Sulfate) 0.125 Mg Tab.rapdis 0.125 MG SL TID #30 Lorazepam (Ativan) 1 Mg Tab 1 MG PO BID #45 Mirtazapine (Remeron) 15 Mg Tablet 15 MG PO DAILY #30 Norethindrone-E.estradiol-Iron (Blisovi 24 Fe Tablet) 1 Each Tablet 1 TAB PO DAILY #28 Pentosan Polysulfate Sodium (Elmiron) 100 Mg Capsule 100 MG PO TID #90 Quetiapine Fumarate (Quetiapine Fumarate ER) 150 Mg Tab.er.24h 150 MG PO DAILY #30 Topiramate (Topiramate) 50 Mg Tablet 50 MG PO BID #60 Discontinued Medications: Clonidine (Catapres) 0.1 Mg Tab 0.1 MG PO BID #30 Metformin HCl (Metformin HCl) 500 Mg Tablet 500 MG PO BID WITH MEALS #60 Sulfamethoxazole/Trimethoprim (Bactrim DS) 1 Each Tablet 1 TAB PO BID #14 Ref 0 TAB Tramadol HCl (Tramadol HCl ER) 100 Mg Tab.er.24h 100 MG PO DAILY #30 Trazodone HCl (Desyrel) 100 Mg Tab 200 MG PO HS #60 Follow up Follow up Referrals: Physician Referral - 08/28/16 with Jeffery Alvarez Md New Orders: CALPROTECTIN - 08/21/16 Discharge Diagnosis See list above. Problems: Copies to: End of Report . LALA WITT MD August 21, 2016 18:35
--- NOTE | 2016-08-21 18:48 | NUR ---
Pt calls nurse to room- Pt had BM - sample sent to lab.
--- NOTE | 2016-08-21 19:09 | NUR ---
Pt dismissed to home via ambulation accomp by .
[2016-08-21] MEDS ORDERED: MIRTAZAPINE 15 MG (REMERON) TABLET PO SCH (21:00)
[2016-08-21] MEDS ORDERED: LORazepam 1 MG (ATIVAN) TABLET PO SCH (21:00)
== END 2016-08-21 19:05 | disposition home or self-care (01) ==
LOC: ED 00:58 → MED/SURG 01:27
PROVIDERS: ADMIT Hospitalist; ATTEND Hospitalist
DX: K56.7 Ileus, unspecified (principal); K52.9 Noninfective gastroenteritis and colitis, unspecified; G43.909 Migraine, unspecified, not intractable, without status migrainosus; N32.89 Other specified disorders of bladder; K59.00 Constipation, unspecified; F41.9 Anxiety disorder, unspecified; E28.2 Polycystic ovarian syndrome; E66.9 Obesity, unspecified; Z68.35 Body mass index [BMI] 35.0-35.9, adult; F43.10 Post-traumatic stress disorder, unspecified; G89.29 Other chronic pain; F32.9 Major depressive disorder, single episode, unspecified
CPT/HCPCS: 36415; 74020; 80053; 81003; 81015; 82150; 83690; 85025; 86140; 96374; 96375; 96376; 99218; 99283; J1170; J1885; J2405; J2765; J7030; 99281